=== PATIENT | male | born 1980 | race Caucasian/White ===

== ENCOUNTER 2016-04-10 19:44 | Emergency (ER) | payer OTHER ==
[2016-04-10 20:55] LABS: BASOPHILS % 0.5 (0.0-1.5); EOSINOPHILS % 3.7 % (0.0-6.8); LYMPHOCYTES # 3.3 # k/uL (0.6-4.0); MEAN CORPUSCULAR HEMOGLOBIN 30.2 pg (28.0-34.0); MONOCYTES # 0.6 # k/uL (0.0-0.9); MONOCYTES % 5.1 % (0.0-11.0); NEUTROPHILS # 6.9 # k/uL (1.4-7.7)
[2016-04-10 21:01] LABS: APPEARANCE,URINE Clear (CLEAR); COLOR,URINE Yellow (YELLOW); OCCULT BLOOD,URINE Negative (NEGATIVE)
[2016-04-10 21:11] LABS: eGFR (African) > 60; eGFR (Non-African) > 60
--- NOTE | 2016-04-10 21:28 | ED Physician Documentation ---
Psychological Disorders - HISTORIAN Historian: patient - HPI Stated Complaint: suicidal thoughts Chief Complaint: Psychological Disorder Onset: days ago (3) Intent: suicide Further Comments: yes (36 year old male patient presents with complaints of depression x 3 days, patient states he was started on Prozac 2 days ago by Roney. Patient reports long history of mental health problems, patient reports last inpatient stay 1 year ago at [facility] in . Patient states Sim increased his klonopin and added Prozac, states "I don't feel right". Reports plan to overdose on his cardiac medications. Old records reviewed, patient was seen in ER on 04/09/2016 for c/o bradycardia and anxiety, medicated with ativan IV, and discharged home. Instructed to follow up with PCP.) - Associated Symptoms Symptoms: depressed Suicidal: specific plan - ROS CONST: none NEURO/PSYCH: anxiety, depression EYES/ENT: none CVS/RESP: none GI/: denies: nausea, vomiting, problems urinating MS/SKIN/LYMPH: denies: joint pain, leg swelling - PAST HX Psychiatric problems: prior suicide attempt, psychiatric problems Lung, Cardiac, DM: asthma, cardiac disease (AMI, stent 08/2015), COPD, other (HLD ) Surgical History: angioplasty, appendectomy, cholecystectomy, coronary bypass surgery Allergies/Adverse Reactions: Allergies Allergy/AdvReac Type Severity Reaction Status Date / Time aripiprazole [From Abilify] Allergy facial Verified 04/10/16 19:59 twitching tramadol Allergy Verified 04/10/16 19:59 hydroxyzine HCl AdvReac Tremors Verified 04/10/16 19:59 [From Vistaril] hydroxyzine pamoate AdvReac Tremors Verified 04/10/16 19:59 [From Vistaril] Home Medications: Ambulatory Orders Medication Instructions Recorded Clopidogrel Bisulfate [Clopidogrel] 75 mg PO D 09/20/15 Aspirin [Aspir 81] 81 mg PO DAILY u2 12/09/15 Atorvastatin Calcium 80 mg PO HS u2 12/09/15 Lisinopril 5Mg [Prinivil] 5 mg PO 1/2 tab BID u2 12/09/15 Propranolol HCl [Inderal] 20 mg PO TID 01/18/16 clonazePAM [Klonopin] 1 mg PO BID 02/01/16 Omeprazole [Omeprazole] 20 mg PO DAILY 04/10/16 - Social HX Smoking History: cigarettes Drug Use: other (patient denies) - Family HX Family HX: mental illness - VITAL SIGNS Vital Signs: Vital Signs Temp Pulse Resp BP Pulse Ox 98.6 F 69 14 109/68 95 04/10/16 19:50 04/10/16 22:01 04/10/16 22:01 04/10/16 22:01 04/10/16 22:01 - REVIEWED ASSESSMENTS Nursing Assessment Reviewed: Yes Vitals Reviewed: Yes Progress - Progress Progress: No urine drug screens available at [facility] at this time. [facility] contacted , closed for the night. [facility] contacted - awaiting return call from scientific laboratory supervisor. [facility], [facility] contacted - will not accepted patient without UDS. [address] [facility] - will reviewed paperwork. Lab faxed. 2199 nanotechnician to deliver urine specimen to [facility] for UDS. 2219 Patient accepted by [facility] at [facility], agrees with voluntary commitment. Will transport via EMS. ED Results Lab/Radiology - Lab Results Lab Results: Lab Results 04/10/16 04/10/16 04/10/16 20:36 20:35 20:35 WBC RBC Hgb Hct MCV MCH MCHC RDW Plt Count Neut % (Auto) Lymph % (Auto) [place] % (Auto) Eos % (Auto) Baso % (Auto) Neut # Lymph # [place] # Eos # Baso # Reactive Lymphs % Reactive Lymphs # Sodium 135 mmol/L L mmol/L (136-145) Potassium 3.7 mmol/L mmol/L (3.5-5.0) Chloride 106 mmol/L mmol/L (98-110) Carbon Dioxide 27 mmol/L mmol/L (20-32) BUN 15 mg/dL mg/dL (10-26) Creatinine 0.8 mg/dL mg/dL (0.4-1.5) Estimated Creat Clear 144 Est GFR ( Amer) > 60 (60 - ) Est GFR (Non-Af Amer) > 60 (60 - ) Glucose 95 mg/dL mg/dL (70-99) Calcium 9.1 mg/dL mg/dL (8.5-10.5) Total Bilirubin 0.6 mg/dL mg/dL (0.2-1.2) AST 33 U/L U/L (0-41) ALT 38 U/L U/L (0-45) Alkaline Phosphatase 89 U/L U/L (46-116) Creatine Kinase 106 U/L U/L (0-225) Troponin I < 0.03 ng/mL ng/mL (0.00-0.06) Total Protein 7.3 g/dL g/dL (6.0-8.5) Albumin 4.7 g/dL g/dL (3.0-5.5) Urine Color Yellow (YELLOW) Urine Appearance Clear (CLEAR) Urine pH 6.0 (5.0 - 8.0) Ur Specific [place] 1.020 (1.010-1.030) Urine Protein Negative mg/dL mg/dL (NEGATIVE) Urine Ketones Negative mg/dL mg/dL (NEGATIVE) Urine Occult Blood Negative (NEGATIVE) Urine Nitrite Negative (NEGATIVE) Urine Bilirubin Negative (NEGATIVE) Urine Urobilinogen 1.0 Eu Eu (0.2-1.0) Ur Leukocyte Esterase Negative (NEGATIVE) Urine Glucose Negative mg/dL mg/dL (NEGATIVE) Ethyl Alcohol < 10.0 MG/DL MG/DL (<10.0) 04/10/16 20:35 WBC 11.30 K/ul K/ul (4.00-12.00) RBC 5.31 M/ul H M/ul (3.90-5.20) Hgb 16.1 g/dL g/dL (12.0-18.0) Hct 47.8 % % (37.0-53.0) MCV 90.0 fl fl (80.0-100.0) MCH 30.2 pg pg (28.0-34.0) MCHC 33.6 g/dL g/dL (30.0-36.0) RDW 13.7 % % (11.3-14.3) Plt Count 153 K/mm3 K/mm3 (130-400) Neut % (Auto) 60.7 % % (39.0-79.0) Lymph % (Auto) 28.7 % % (16.0-50.0) [place] % (Auto) 5.1 % % (0.0-11.0) Eos % (Auto) 3.7 % % (0.0-6.8) Baso % (Auto) 0.5 (0.0-1.5) Neut # 6.9 # k/uL # k/uL (1.4-7.7) Lymph # 3.3 # k/uL # k/uL (0.6-4.0) [place] # 0.6 # k/uL # k/uL (0.0-0.9) Eos # 0.4 # k/uL # k/uL (0.0-0.6) Baso # 0.1 # k/uL # k/uL (0.0-0.5) Reactive Lymphs % 1.2 % % (0.0-5.0) Reactive Lymphs # 0.1 # k/uL # k/uL (0.0-0.8) Sodium Potassium Chloride Carbon Dioxide BUN Creatinine Estimated Creat Clear Est GFR ( Amer) Est GFR (Non-Af Amer) Glucose Calcium Total Bilirubin AST ALT Alkaline Phosphatase Creatine Kinase Troponin I Total Protein Albumin Urine Color Urine Appearance Urine pH Ur Specific [place] Urine Protein Urine Ketones Urine Occult Blood Urine Nitrite Urine Bilirubin Urine Urobilinogen Ur Leukocyte Esterase Urine Glucose Ethyl Alcohol - Orders Orders: ED Orders Category Date Time Status Suicide Precautions NOW Care 04/10/16 19:15 Active CBC/PLATELET/DIFF Stat Lab 04/10/16 20:35 Completed CMP Stat Lab 04/10/16 20:35 Completed CREATINE KINASE Stat Lab 04/10/16 20:35 Completed ETHANOL MEDICAL USE ONLY Stat Lab 04/10/16 20:35 Completed TROPONIN I (cTnI) Stat Lab 04/10/16 20:35 Completed UA W/MICRO IF INDICATED Stat Lab 04/10/16 20:36 Completed Urine drug screen [DRUG SCREEN URINE MEDICAL ONLY] Stat Lab 04/10/16 Ordered EKG WITH COMPARISON Stat Ther 04/10/16 20:08 Ordered Psych Physical Exam - Physical Exam General Appearance: no acute distress, alert ENT: nml ENT inspection Eyes: PERRL, EOM's intact Mental Status: mood/affect nml Suicide Attempts: admit Orientation: nml x3 Sensory, Motor: nml motor response, nml sensory response, nml reflexes, nml gait Neck/Back: normal inspection, thyroid normal Respiratory: no resp distress, chest non-tender, breath sounds normal CVS: reg rate & rhythm, heart sounds normal, equal pulses, no murmur, no gallop , PMI nml, no JVD, no friction rub, 24 Abdomen: non-tender, no organomegaly, nml bowel sounds, no distention Skin: normal color, warm/dry, NR, INT, PAL, DR Extremities: non-tender, normal range of motion, no evidence of injury, no edema , J, 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
[2016-04-10 23:29] VITALS: BP 105/57
== END 2016-04-10 23:15 | disposition short-term general hospital (02) ==
LOC: ED 19:44
DX: R45.851 Suicidal ideations (principal); F41.9 Anxiety disorder, unspecified
CPT/HCPCS: 80053; 80320; 81002; 82550; 84484; 85025; 99282; 99283; G0480

== ENCOUNTER 2016-04-26 17:19 | Emergency (ER) | payer OTHER ==
--- NOTE | 2016-04-26 18:15 | ED Physician Documentation ---
General Adult - HISTORIAN Historian: patient - HPI Stated Complaint: Nausea/weakness Chief Complaint: General Adult Onset: days ago (3 days) Timing: still present Severity: moderate Context: no precipitating factor Further Comments: yes (3 day history of feeling fatigue and weak, having some body aches, SOB, coughing thick brown, mild blood noted. Dull aching and tightness in the chest area.) - ROS CONST: other (no one else at home ill, having orthostatic symptoms). denies: fever, chills CVS/RESP: chest pain, shortness of breath - PAST HX Past History: other (CAD) Surgeries/Procedures: other (cathdiac cath with stint placement) - SOCIAL HX Smoking History: greater than 1 pack/day (2 ppd) Alcohol Use: none Drug Use: none - FAMILY HX Family History: No - VITAL SIGNS Vital Signs: Vital Signs Temp Pulse Resp BP Pulse Ox 99.3 F 60 18 98/67 96 04/26/16 17:39 04/26/16 17:39 04/26/16 17:39 04/26/16 17:39 04/26/16 17:39 - REVIEWED ASSESSMENTS Nursing Assessment Reviewed: Yes Vitals Reviewed: Yes <Vijay Dave - Last Filed: 04/26/16 18:43> - VITAL SIGNS Vital Signs: Vital Signs Temp Pulse Resp BP Pulse Ox 99.3 F 60 18 98/67 96 04/26/16 17:39 04/26/16 17:39 04/26/16 17:39 04/26/16 17:39 04/26/16 17:39 <HAKEEM MURILLO - Last Filed: 04/26/16 19:49> - PAST HX Allergies/Adverse Reactions: Allergies Allergy/AdvReac Type Severity Reaction Status Date / Time aripiprazole [From Abilify] Allergy facial Verified 04/26/16 17:49 twitching tramadol Allergy Verified 04/26/16 17:49 hydroxyzine HCl AdvReac Tremors Verified 04/26/16 17:49 [From Vistaril] hydroxyzine pamoate AdvReac Tremors Verified 04/26/16 17:49 [From Vistaril] Home Medications: Ambulatory Orders Medication Instructions Recorded Clopidogrel Bisulfate [Clopidogrel] 75 mg PO D 09/20/15 Aspirin [Aspir 81] 81 mg PO DAILY u2 12/09/15 Atorvastatin Calcium 80 mg PO HS u2 12/09/15 Lisinopril 5Mg [Prinivil] 5 mg PO 1/2 tab BID u2 12/09/15 Propranolol HCl [Inderal] 20 mg PO TID 01/18/16 clonazePAM [Klonopin] 1 mg PO BID 02/01/16 Omeprazole [Omeprazole] 20 mg PO DAILY 04/10/16 Progress - Progress Progress: Chest -two views CLINICAL HISTORY: Cough and fatigue for 3 days. FINDINGS: Examination of the chest in PA and lateral views with comparison to examination 04/09/2016 demonstrates lungs to be clear. Cardiovascular and mediastinal silhouettes are stable. Bony thorax is intact. IMPRESSION: No significant change. No active disease. Electronically signed on Apr 26, 2016 6:33:05 PM SLAG PRODUCTION WORKER by: Derrick Douglas, Declines second bag of IV fluids. Says he feels ok to go home. <HAKEEM MURILLO - Last Filed: 04/26/16 19:49> ED Results Lab/Radiology - Lab Results Lab Results: Lab Results 04/26/16 04/26/16 04/26/16 18:40 18:40 18:40 WBC 10.60 K/ul K/ul (4.00-12.00) RBC 5.62 M/ul H M/ul (3.90-5.20) Hgb 16.8 g/dL g/dL (12.0-18.0) Hct 50.2 % % (37.0-53.0) MCV 89.3 fl fl (80.0-100.0) MCH 30.0 pg pg (28.0-34.0) MCHC 33.6 g/dL g/dL (30.0-36.0) RDW 13.9 % % (11.3-14.3) Plt Count 192 K/mm3 K/mm3 (130-400) Neut % (Auto) 51.0 % % (39.0-79.0) Lymph % (Auto) 36.3 % % (16.0-50.0) [place] % (Auto) 6.4 % % (0.0-11.0) Eos % (Auto) 4.4 % % (0.0-6.8) Baso % (Auto) 0.6 (0.0-1.5) Neut # 5.4 # k/uL # k/uL (1.4-7.7) Lymph # 3.8 # k/uL # k/uL (0.6-4.0) [place] # 0.7 # k/uL # k/uL (0.0-0.9) Eos # 0.5 # k/uL # k/uL (0.0-0.6) Baso # 0.1 # k/uL # k/uL (0.0-0.5) Reactive Lymphs % 1.2 % % (0.0-5.0) Reactive Lymphs # 0.1 # k/uL # k/uL (0.0-0.8) Sodium 140 mmol/L mmol/L (136-145) Potassium 3.4 mmol/L L mmol/L (3.5-5.0) Chloride 105 mmol/L mmol/L (98-110) Carbon Dioxide 29 mmol/L mmol/L (20-32) BUN 8 mg/dL L mg/dL (10-26) Creatinine 0.7 mg/dL mg/dL (0.4-1.5) Estimated Creat Clear 165 Est GFR ( Amer) > 60 (60 - ) Est GFR (Non-Af Amer) > 60 (60 - ) Glucose 98 mg/dL mg/dL (70-99) Calcium 9.7 mg/dL mg/dL (8.5-10.5) Total Bilirubin 0.5 mg/dL mg/dL (0.2-1.2) AST 27 U/L U/L (0-41) ALT 38 U/L U/L (0-45) Alkaline Phosphatase 108 U/L U/L (46-116) Total Protein 7.5 g/dL g/dL (6.0-8.5) Albumin 4.8 g/dL g/dL (3.0-5.5) Influenza Type A Ag Negative (NEGATIVE) Influenza Type B Ag Negative (NEGATIVE) - Orders Orders: ED Orders Category Date Time Status Place Saline Lock/IV Now Care 04/26/16 18:19 Active CHEST P.A.&LAT 2 VIEWS [RAD] Routine Exams 04/26/16 Ordered CBC/PLATELET/DIFF Routine Lab 04/26/16 18:40 Completed CMP Routine Lab 04/26/16 18:40 Completed INFLUENZA A&B Routine Lab 04/26/16 18:40 Completed 0.9 % Sodium Chloride [Normal Saline] 1,000 ml Med 04/26/16 18:30 Ordered IV .Q1H <HAKEEM MURILLO - Last Filed: 04/26/16 19:49> General Adult Physical Exam - PHYSICAL EXAM GENERAL APPEARANCE: mild distress EENT: no signs of dehydration NECK: normal inspection, thyroid normal, supple. No: lymphadenopathy, stiff neck RESPIRATORY: no resp distress, chest non-tender, rales (left base) CVS: reg rate & rhythm, heart sounds normal, equal pulses ABDOMEN: soft, no organomegaly, normal bowel sounds, no abdominal bruit, no distension, non-tender BACK: normal inspection, no CVA tenderness SKIN: warm/dry, normal color NEURO: oriented X3, mood/affect nml, cognition normal <Vijay Dave - Last Filed: 04/26/16 18:43> Discharge <Vijay Dave - Last Filed: 04/26/16 18:43> Decision to Admit: NO Decision Time: 19:47 <HAKEEM MURILLO - Last Filed: 04/26/16 19:49> Clincal Impression: Upper respiratory infection Qualifiers: URI type: unspecified URI Qualified Code(s): J06.9 - Acute upper respiratory infection, unspecified Referrals: Vijay Dave MD [Primary Care Provider] - 2 Days Additional Instructions: Drink plenty of liquids, water. Follow up with your provider as needed. Home Medications: Ambulatory Orders Clopidogrel Bisulfate [Clopidogrel] 75 mg PO D 09/20/15 Aspirin [Aspir 81] 81 mg PO DAILY u2 12/09/15 Atorvastatin Calcium 80 mg PO HS u2 12/09/15 Lisinopril 5Mg [Prinivil] 5 mg PO 1/2 tab BID u2 12/09/15 Propranolol HCl [Inderal] 20 mg PO TID 01/18/16 clonazePAM [Klonopin] 1 mg PO BID 02/01/16 Omeprazole [Omeprazole] 20 mg PO DAILY 04/10/16 Condition: Fair Disposition: 01 HOME, SELF-CARE
[2016-04-26] MEDS ORDERED: 0.9 % SODIUM CHLORIDE 1,000 ML IV ONE (18:24)
[2016-04-26] MEDS: 0.9 % SODIUM CHLORIDE 1,000 ML IV SCH (18:42)
[2016-04-26 18:47] LABS: BASOPHILS % 0.6 (0.0-1.5); EOSINOPHILS % 4.4 % (0.0-6.8); LYMPHOCYTES # 3.8 # k/uL (0.6-4.0); MONOCYTES # 0.7 # k/uL (0.0-0.9); MONOCYTES % 6.4 % (0.0-11.0); NEUTROPHILS # 5.4 # k/uL (1.4-7.7)
[2016-04-26 19:05] LABS: eGFR (African) > 60; eGFR (Non-African) > 60
[2016-04-26] MEDS: 0.9 % SODIUM CHLORIDE 1,000 ML IV ONE (19:48)
[2016-04-26 20:00] VITALS: BP 110/62
--- NOTE | 2016-04-27 06:32 | Diagnostic Imaging Report ---
Report Submission Date: Apr 26, 2016 6:33:05 PM PIT WORKER POWER SHOVEL Patient ~ Study Name: ALISA CRABTREE ~ Date: Apr 26, 2016 6:24:15 PM PIT WORKER POWER SHOVEL ~ Modality Type: CR Gender: M ~ Description: CHEST : 76 ~ Institution: [facility] Physician: TALAT EDMONSDON ~ ~ ~ ~ Chest -two views CLINICAL HISTORY: ~ Cough and fatigue for 3 days. FINDINGS: ~ Examination of the chest in PA and lateral views with comparison to examination 04/09/2016 demonstrates lungs to be clear. ~Cardiovascular and mediastinal silhouettes are stable. ~Bony thorax is intact. IMPRESSION: ~ No significant change. ~ No active disease. ~ Electronically signed on Apr 26, 2016 6:33:05 PM PIT WORKER POWER SHOVEL by: Derrick VIEYRA
== END 2016-04-26 19:55 | disposition home or self-care (01) ==
LOC: ED 17:19
DX: J06.9 Acute upper respiratory infection, unspecified (principal)
CPT/HCPCS: 71020; 80053; 85025; 87400; J7030; 99282; 99283; S1016

== ENCOUNTER 2016-05-08 17:49 | Emergency (ER) | payer OTHER ==
[2016-05-08 18:08] VITALS: BP 114/71
[2016-05-08] MEDS ORDERED: predniSONE 20 MG TABLET PO ONE (18:28)
[2016-05-08] MEDS ORDERED: HYDROcodone /APAP 5/325 1 EACH TABLET PO ONE (18:29)
[2016-05-08] MEDS ORDERED: predniSONE 10 MG TABLET PO ONE (18:31)
--- NOTE | 2016-05-08 18:33 | ED Physician Documentation ---
General Adult - HISTORIAN Historian: patient - HPI Stated Complaint: cough, dental pain Chief Complaint: General Adult Onset: days ago (3) Timing: still present Severity: moderate Further Comments: yes (Pt is a 36 yo male with dental pain and with a cough x 3 days. Pt has had dental extractions recently and has other extractions planned. Pt is on amoxicillan following his recent extractions.) - ROS CONST: no problems EYES/ENT: other (dental pain) CVS/RESP: cough GI/: none MS/SKIN/LYMPH: none - PAST HX Past History: other (Depression, GERD, HLD, HTN, [place] with stents) Surgeries/Procedures: cardiac stent Allergies/Adverse Reactions: Allergies Allergy/AdvReac Type Severity Reaction Status Date / Time aripiprazole [From Abilify] Allergy facial Verified 05/08/16 18:00 twitching tramadol Allergy Verified 05/08/16 18:00 hydroxyzine HCl AdvReac Tremors Verified 05/08/16 18:00 [From Vistaril] hydroxyzine pamoate AdvReac Tremors Verified 05/08/16 18:00 [From Vistaril] Home Medications: Ambulatory Orders Medication Instructions Recorded Clopidogrel Bisulfate [Clopidogrel] 75 mg PO D 09/20/15 Aspirin [Aspir 81] 81 mg PO DAILY u2 12/09/15 Atorvastatin Calcium 80 mg PO HS u2 12/09/15 Lisinopril 5Mg [Prinivil] 5 mg PO 1/2 tab BID u2 12/09/15 Propranolol HCl [Inderal] 20 mg PO TID 01/18/16 clonazePAM [Klonopin] 1 mg PO BID 02/01/16 Omeprazole [Omeprazole] 20 mg PO DAILY 04/10/16 - SOCIAL HX Smoking History: cigarettes - FAMILY HX Family History: No - VITAL SIGNS Vital Signs: Vital Signs Temp Pulse Resp BP Pulse Ox 97.5 F L 71 16 114/71 98 05/08/16 18:01 05/08/16 18:01 05/08/16 18:01 05/08/16 18:01 05/08/16 18:01 - REVIEWED ASSESSMENTS Nursing Assessment Reviewed: Yes Vitals Reviewed: Yes Progress - Progress Progress: Rx Prednisone 50 mg po qd x 5 days, 1st dose in ER Rx [place] (5/325) 1-2 po q 4-6h prn #10, plus 2-->home. ED Results Lab/Radiology - Orders Orders: ED Orders Category Date Time Status CHEST P.A.&LAT 2 VIEWS [RAD] Stat Exams 05/08/16 Ordered HYDROcodone /APAP 5/325 [[place] 5/325] Med 05/08/16 18:29 Once 2 each PO NOW ONE predniSONE [Deltasone] Med 05/08/16 18:28 Once 50 mg PO NOW ONE General Adult Physical Exam - PHYSICAL EXAM GENERAL APPEARANCE: mild distress EENT: pharynx normal, other (poor dentition; L upper dental pain) RESPIRATORY: no resp distress, chest non-tender CVS: reg rate & rhythm, heart sounds normal BACK: normal inspection SKIN: warm/dry, normal color EXTREMITIES: non-tender, normal range of motion NEURO: oriented X3 Discharge Clincal Impression: Pain, dental, Cough Referrals: Vijay Dave MD [Primary Care Provider] - Home Medications: Ambulatory Orders Clopidogrel Bisulfate [Clopidogrel] 75 mg PO D 09/20/15 Aspirin [Aspir 81] 81 mg PO DAILY u2 12/09/15 Atorvastatin Calcium 80 mg PO HS u2 12/09/15 Lisinopril 5Mg [Prinivil] 5 mg PO 1/2 tab BID u2 12/09/15 Propranolol HCl [Inderal] 20 mg PO TID 01/18/16 clonazePAM [Klonopin] 1 mg PO BID 02/01/16 Omeprazole [Omeprazole] 20 mg PO DAILY 04/10/16 Condition: Good Disposition: HOME, SELF-CARE Decision to Admit: NO Decision Time: 18:40
--- NOTE | 2016-05-08 18:40 | Diagnostic Imaging Report ---
~ [facility] [address] [facility].[address] [address] ~ ~ ~ ~ Report Submission Date: May 08, 2016 6:30:15 PM ROUGH RICE GRADER Patient ~ Study Name: ALISA CRABTREE ~ Date: May 08, 2016 6:17:02 PM ROUGH RICE GRADER ~ Modality Type: CR Gender: M ~ Description: CHEST : 76 ~ Institution: [facility] Physician: EZEQUIEL RUTLEDGE ~ ~ ~ ~ Chest 2 views History: Productive cough Findings: The lungs are clear. No pleural effusions are observed. Heart size and pulmonary vascularity are normal. Osseous structures are normal. Impression: Normal chest. ~ Electronically signed on May 08, 2016 6:30:15 PM ROUGH RICE GRADER by: Gerson VIEYRA
== END 2016-05-08 18:46 | disposition home or self-care (01) ==
LOC: ED 17:49
DX: K02.9 Dental caries, unspecified (principal); R05 Cough; F17.210 Nicotine dependence, cigarettes, uncomplicated
CPT/HCPCS: 71020; A9270; J7512; 99282; 99283

== ENCOUNTER 2016-05-10 10:23 | Outpatient (CLI) | payer OTHER | END 2016-05-10 10:24 | LOC: CARD 10:23 | PROVIDERS: ATTEND Internal Medicine Cardiovascular Disease | DX: I25.10 Atherosclerotic heart disease of native coronary artery without angina pectoris (principal) | CPT/HCPCS: 99214 ==

== ENCOUNTER 2016-05-16 08:52 | Emergency (ER) | payer OTHER ==
--- NOTE | 2016-05-16 10:12 | ED Physician Documentation ---
Sore Throat/Dental Pain - HISTORIAN Historian: patient - HPI Stated Complaint: dental pain Chief Complaint: Dental Pain Additional Information: post dental extraction pain Onset: days ago (4) Associated Symptoms: mild, moderate Further Comments: yes (pt understands he must see dentists before more pain meds. he also agrees to limit narcotic, supplement w/ ibu or tylenol. he sees his dentist fri next.) - ROS CONST: no problems CVS/RESP: none GI/: denies: problems urinating NEURO/PSYCH: none - PAST HX Past History: other (IHD TEMORS HI CHOLESTEROL) Other History: cardiac disease, other (HE HAS HAD BALOON AND STENT) Immunizations: UTD Allergies/Adverse Reactions: Allergies Allergy/AdvReac Type Severity Reaction Status Date / Time aripiprazole [From Abilify] Allergy facial Verified 05/16/16 09:23 twitching tramadol Allergy Verified 05/16/16 09:23 hydroxyzine HCl AdvReac Tremors Verified 05/16/16 09:23 [From Vistaril] hydroxyzine pamoate AdvReac Tremors Verified 05/16/16 09:23 [From Vistaril] Home Medications: Ambulatory Orders Medication Instructions Recorded Clopidogrel Bisulfate [Clopidogrel] 75 mg PO D 09/20/15 Aspirin [Aspir 81] 81 mg PO DAILY u2 12/09/15 Atorvastatin Calcium 80 mg PO HS u2 12/09/15 Lisinopril 5Mg [Prinivil] 5 mg PO 1/2 tab BID u2 12/09/15 Propranolol HCl [Inderal] 20 mg PO TID 01/18/16 clonazePAM [Klonopin] 1 mg PO BID 02/01/16 Omeprazole [Omeprazole] 20 mg PO DAILY 04/10/16 HYDROcodone /APAP 5/325 [[place] 1 each PO Q6 PRN 05/16/16 5/325] - SOCIAL HX Smoking History: greater than 1 pack/day Alcohol Use: none Drug Use: none - FAMILY HX Family History: No - VITAL SIGNS Vital Signs: Vital Signs Temp Pulse Resp BP Pulse Ox 98.2 F 64 18 112/67 93 05/16/16 09:28 05/16/16 09:28 05/16/16 09:28 05/16/16 09:28 05/16/16 09:28 - REVIEWED ASSESSMENTS Nursing Assessment Reviewed: Yes Vitals Reviewed: Yes Dental Pain Physical Exam - EXAM General Appearance: mild distress Head/Neck: head nml inspection Eyes: eyes nml inspection Mouth/Throat: lips nml. No: gums nml (s/p recent dental extrlaction) Ear/Nose: nml inspection Respiratory: no resp. distress, breath sounds nml CVS: reg. rate & rhythm Abdomen: soft, non-tender Extremities: non-tender, nml ROM Skin: warm/dry, normal color, other (smell heavily of cigarette smoke) Neuro/Psych: anxiety Discharge Clincal Impression: post dental extraction pain Additional Instructions: no more narcotics from this ed-pt agrees. also agrees to see dentists very soon Home Medications: Ambulatory Orders Clopidogrel Bisulfate [Clopidogrel] 75 mg PO D 09/20/15 Aspirin [Aspir 81] 81 mg PO DAILY u2 12/09/15 Atorvastatin Calcium 80 mg PO HS u2 12/09/15 Lisinopril 5Mg [Prinivil] 5 mg PO 1/2 tab BID u2 12/09/15 Propranolol HCl [Inderal] 20 mg PO TID 01/18/16 clonazePAM [Klonopin] 1 mg PO BID 02/01/16 Omeprazole [Omeprazole] 20 mg PO DAILY 04/10/16 HYDROcodone /APAP 5/325 [[place] 5/325] 1 each PO Q6 PRN 05/16/16 Condition: Good Disposition: 01 HOME, SELF-CARE Decision to Admit: NO Decision Time: 10:17
[2016-05-16 10:36] VITALS: BP 109/68
== END 2016-05-16 10:35 | disposition home or self-care (01) ==
LOC: ED 08:52
DX: K02.9 Dental caries, unspecified (principal)
CPT/HCPCS: 99282

== ENCOUNTER 2016-05-17 11:19 | Outpatient (CLI) | payer OTHER ==
[2016-05-16 10:36] VITALS: BP 109/68
== END 2016-05-17 11:20 ==
LOC: CARD 11:19
PROVIDERS: ATTEND Internal Medicine Cardiovascular Disease
DX: I25.10 Atherosclerotic heart disease of native coronary artery without angina pectoris (principal)
CPT/HCPCS: 99214

== ENCOUNTER 2016-06-09 07:43 | Outpatient (CLI) | payer OTHER ==
--- NOTE | 2016-06-09 13:08 | Diagnostic Imaging Report ---
RADHA RUSSELL [facility] [address] [facility] [address] [place] [address]. [id number] Report Submission Date: Jun 09, 2016 10:33:34 AM LOCKSTITCH HEMMER Patient Study Name: ALISA CRABTREE Date: Jun 09, 2016 8:07:56 AM LOCKSTITCH HEMMER Modality Type: US Gender: M Description: US ABD LIMITED : 76 Institution: [facility] Physician: RADHA RUSSELL Ultrasound abdomen limited History: Vomiting for 1 week following coronary stent placement Findings: The pancreas, liver, and right kidney exhibit normal size, echogenicity and morphology. Antegrade main portal venous flow is present. The gallbladder is normal without stones, wall thickening, or distention. Common bile duct diameter is normal at 3 mm. Impression: Normal. Electronically signed on Jun 09, 2016 10:33:34 AM LOCKSTITCH HEMMER by: Gerson VIEYRA
== END 2016-06-09 07:44 ==
LOC: RAD 07:43
PROVIDERS: ATTEND Physician Assistant
DX: R11.11 Vomiting without nausea (principal)
CPT/HCPCS: 76705

== ENCOUNTER 2016-06-15 10:07 | Emergency (ER) | payer OTHER ==
[2016-06-15] MEDS ORDERED: PROMETHAZINE HCL 25 MG/ML VIAL IM ONE (10:28)
[2016-06-15 10:42] LABS: BASOPHILS % 0.4 (0.0-1.5); EOSINOPHILS % 3.2 % (0.0-6.8); LYMPHOCYTES # 2.6 # k/uL (0.6-4.0); MEAN CORPUSCULAR HEMOGLOBIN 30.3 pg (28.0-34.0); MONOCYTES # 0.4 # k/uL (0.0-0.9); NEUTROPHILS # 10.4 # k/uL (1.4-7.7)
[2016-06-15 11:03] LABS: eGFR (African) > 60; eGFR (Non-African) > 60
--- NOTE | 2016-06-15 11:17 | ED Physician Documentation ---
Abdominal Pain - HISTORIAN Historian: patient - HPI Stated Complaint: vomiting Chief Complaint: Abdominal Pain Onset: other (weeks ago) Duration: worse Timing: still present Context: denies: out of country travel, bad food, recent trauma Severity: severe Quality: dull Associated Symptoms: nausea, vomiting Exacerbated by: nothing Relieved by: nothing Further Comments: yes (36 year old male patient presents with complaints of vomiting 4 times today. States he is scheduled with GI on 06/27. Denies fever, c/o discomfort "all over".) - ROS CONST: recent illness GI/: none CVS/RESP: none EYES/ENT: none MS/SKIN/LYMPH: none NEURO/PSYCH: none - SOCIAL HX Smoking History: non-smoker Alcohol Use: none Drug Use: none - FAMILY HX Family History: denies: none - PAST HX Past History: GERD Ischemic Bowel Risk Factors: none Other History: hyperlipidemia, hypertension, other (Scitzophrenia, GERD, HLD, HTN) Surgeries/Procedures: other (angioplasty 1st Diagonal) Home Medications: Ambulatory Orders Medication Instructions Recorded Clopidogrel Bisulfate [Clopidogrel] 75 mg PO D 09/20/15 Aspirin [Aspir 81] 81 mg PO DAILY u2 12/09/15 Atorvastatin Calcium 80 mg PO HS u2 12/09/15 Lisinopril 5Mg [Prinivil] 5 mg PO 1/2 tab BID u2 12/09/15 Propranolol HCl [Inderal] 20 mg PO TID 01/18/16 clonazePAM [Klonopin] 1 mg PO BID 02/01/16 Omeprazole [Omeprazole] 20 mg PO DAILY 04/10/16 Escitalopram Oxalate [Lexapro] 10 mg PO QD 06/15/16 Omeprazole [Prilosec] 20 mg PO 06/15/16 Sucralfate [Carafate] 1 gm PO ACHS #120 tablet 06/15/16 Zolpidem Tartrate [Ambien] 10 mg PO HS 06/15/16 Allergies/Adverse Reactions: Allergies Allergy/AdvReac Type Severity Reaction Status Date / Time aripiprazole [From Abilify] Allergy facial Verified 06/15/16 10:52 twitching tramadol Allergy Verified 06/15/16 10:52 hydroxyzine HCl AdvReac Tremors Verified 06/15/16 10:52 [From Vistaril] hydroxyzine pamoate AdvReac Tremors Verified 06/15/16 10:52 [From Vistaril] - VITAL SIGNS Vital Signs: Vital Signs Temp Pulse Resp BP Pulse Ox 98.0 F 60 16 126/84 97 06/15/16 10:12 06/15/16 10:12 06/15/16 10:12 06/15/16 10:12 06/15/16 10:12 - REVIEWED ASSESSMENTS Nursing Assessment Reviewed: Yes Vitals Reviewed: Yes Progress - Progress Progress: Reviewed old records - NO CT of abdomen noted in system. US report on 06/09/2016 - negative. Will progress with CT abd. 1140 Patient has not vomited while in ER. ED Results Lab/Radiology - Lab Results Lab Results: Lab Results 06/15/16 06/15/16 10:30 10:30 WBC 14.00 K/ul H K/ul (4.00-12.00) RBC 5.25 M/ul H M/ul (3.90-5.20) Hgb 15.9 g/dL g/dL (12.0-18.0) Hct 48.1 % % (37.0-53.0) MCV 91.7 fl fl (80.0-100.0) MCH 30.3 pg pg (28.0-34.0) MCHC 33.0 g/dL g/dL (30.0-36.0) RDW 14.5 % H % (11.3-14.3) Plt Count 261 K/mm3 K/mm3 (130-400) Neut % (Auto) 74.3 % % (39.0-79.0) Lymph % (Auto) 18.2 % % (16.0-50.0) [place] % (Auto) 3.0 % % (0.0-11.0) Eos % (Auto) 3.2 % % (0.0-6.8) Baso % (Auto) 0.4 (0.0-1.5) Neut # 10.4 # k/uL H # k/uL (1.4-7.7) Lymph # 2.6 # k/uL # k/uL (0.6-4.0) [place] # 0.4 # k/uL # k/uL (0.0-0.9) Eos # 0.4 # k/uL # k/uL (0.0-0.6) Baso # 0.0 # k/uL # k/uL (0.0-0.5) Reactive Lymphs % 0.9 % % (0.0-5.0) Reactive Lymphs # 0.1 # k/uL # k/uL (0.0-0.8) Sodium 137 mmol/L mmol/L (136-145) Potassium 3.7 mmol/L mmol/L (3.5-5.0) Chloride 104 mmol/L mmol/L (98-110) Carbon Dioxide 29 mmol/L mmol/L (20-32) BUN 9 mg/dL L mg/dL (10-26) Creatinine 0.8 mg/dL mg/dL (0.4-1.5) Estimated Creat Clear 136 Est GFR ( Amer) > 60 (60 - ) Est GFR (Non-Af Amer) > 60 (60 - ) Glucose 128 mg/dL H mg/dL (70-99) Calcium 9.6 mg/dL mg/dL (8.5-10.5) Total Bilirubin 0.6 mg/dL mg/dL (0.2-1.2) AST 30 U/L U/L (0-41) ALT 36 U/L U/L (0-45) Alkaline Phosphatase 99 U/L U/L (46-116) Total Protein 7.8 g/dL g/dL (6.0-8.5) Albumin 4.6 g/dL g/dL (3.0-5.5) - Radiology Radiology Impressions: CT of the abdomen and pelvis without contrast CLINICAL HISTORY: Right side abdominal pain. Vomiting for 2 months. TECHNIQUE: CT of the abdomen and pelvis is performed without oral or intravenous administration of contrast. Sagittal and coronal reconstructions are performed by the technologist. FINDINGS: There is minimal dependent atelectasis in the lung bases. The liver and spleen demonstrate normal attenuation without focal defect. Gallbladder is normally distended. There is no pancreatic or adrenal abnormality. Kidneys are of normal size, shape and position. Vascular calcification is present in the abdominal aorta without evidence of aneurysm. There is no retroperitoneal mass or significant adenopathy. The appendix is visualized and is within normal limits. The structures related to the gastrointestinal tract are unremarkable. Small umbilical hernia is present containing only fat. Bladder is unremarkable. There is no free fluid in the pelvis or abdomen. IMPRESSION: Negative appendix. Vascular calcification. Bibasilar atelectasis. - Orders Orders: ED Orders Category Date Time Status CT ABD & PELVIS W/O CON Stat Exams 06/15/16 Taken CBC/PLATELET/DIFF Stat Lab 06/15/16 10:30 Completed CMP Stat Lab 06/15/16 10:30 Completed Promethazine HCl [Phenergan] Med 06/15/16 10:28 Discontinued 25 mg IM NOW ONE Abdominal Pain Physical Exam - Physical Exam General Appearance: mild distress EENT: eye inspection normal, no signs of dehydration, ANA RESPIRATORY: no resp distress, chest non-tender, breath sounds normal CVS: reg rate & rhythm, heart sounds normal, equal pulses, no murmur, no gallop , PMI nml, no JVD, no friction rub, 24 ABDOMEN: soft, no organomegaly, normal bowel sounds, no abdominal bruit, no distension, tenderness (generalized). 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 NEURO: oriented X3, CN's nml as tested, motor nml, sensation nml Vital Signs: Vital Signs Temp Pulse Resp BP Pulse Ox 98.0 F 60 16 126/84 97 06/15/16 10:12 06/15/16 10:12 06/15/16 10:12 06/15/16 10:12 06/15/16 10:12 Discharge Clincal Impression: Nausea, Epigastric abdominal pain Abdominal pain Qualifiers: Abdominal location: generalized Qualified Code(s): R10.84 - Generalized abdominal pain Prescriptions: Sucralfate [Carafate] 1 gm PO ACHS #120 tablet Referrals: Vijay Dave MD [Primary Care Provider] - 2 Days Additional Instructions: Keep your appointment with GI Diet: Clear liquids Sprite/7-up Juices apple, white grape Gatorade/Powerade Jello Popsicles When tolerating clear liquids, advance to bland diet - such as crackers , rice, bananas or toast Return to the emergency department or call your doctor, if you are having severe abdominal pain, fever >101.0, or if there is blood in the vomit or diarrhea, or you cannot keep down liquids or solid food. Home Medications: Ambulatory Orders Clopidogrel Bisulfate [Clopidogrel] 75 mg PO D 09/20/15 Aspirin [Aspir 81] 81 mg PO DAILY u2 12/09/15 Atorvastatin Calcium 80 mg PO HS u2 12/09/15 Lisinopril 5Mg [Prinivil] 5 mg PO 1/ tab BID u2 12/09/15 Propranolol HCl [Inderal] 20 mg PO TID 01/18/16 clonazePAM [Klonopin] 1 mg PO BID 02/01/16 Omeprazole [Omeprazole] 20 mg PO DAILY 04/10/16 Escitalopram Oxalate [Lexapro] 10 mg PO QD 06/15/16 Omeprazole [Prilosec] 20 mg PO 06/15/16 Sucralfate [Carafate] 1 gm PO ACHS #120 tablet 06/15/16 Zolpidem Tartrate [Ambien] 10 mg PO HS 06/15/16 Condition: Stable Disposition: 01 HOME, SELF-CARE Decision to Admit: NO Decision Time: 13:08
[2016-06-15 15:07] VITALS: BP 103/61
--- NOTE | 2016-06-15 16:04 | Diagnostic Imaging Report ---
[facility] [address] [facility] [address] [place], [place]. [address] Report Submission Date: Jun 15, 2016 12:49:36 PM VISUAL EDUCATOR Patient Study Name: ALISA CRABTREE Date: Jun 15, 2016 11:24:35 AM VISUAL EDUCATOR Modality Type: CT\SR Gender: M Description: CT ABD & PELVIS W/O CO : 76 Institution: [facility] Physician: LAMBERTO VOGT (CLIENT SOLUTIONS SPECIALIST) - ER CT of the abdomen and pelvis without contrast CLINICAL HISTORY: Right side abdominal pain. Vomiting for 2 months. TECHNIQUE: CT of the abdomen and pelvis is performed without oral or intravenous administration of contrast. Sagittal and coronal reconstructions are performed by the technologist. FINDINGS: There is minimal dependent atelectasis in the lung bases. The liver and spleen demonstrate normal attenuation without focal defect. Gallbladder is normally distended. There is no pancreatic or adrenal abnormality. Kidneys are of normal size, shape and position. Vascular calcification is present in the abdominal aorta without evidence of aneurysm. There is no retroperitoneal mass or significant adenopathy. The appendix is visualized and is within normal limits. The structures related to the gastrointestinal tract are unremarkable. Small umbilical hernia is present containing only fat. Bladder is unremarkable. There is no free fluid in the pelvis or abdomen. IMPRESSION: Negative appendix. Vascular calcification. Bibasilar atelectasis. Electronically signed on Jun 15, 2016 12:49:36 PM VISUAL EDUCATOR by: Derrick VIEYRA
== END 2016-06-15 13:25 | disposition home or self-care (01) ==
LOC: ED 10:07
DX: R11.0 Nausea (principal); R10.84 Generalized abdominal pain
CPT/HCPCS: 36415; 74176; 80053; 85025; J2550; 96374; 99283

== ENCOUNTER 2016-06-20 12:19 | Outpatient (CLI) | payer OTHER ==
[2016-06-20 12:35] LABS: BASOPHILS % 0.5 (0.0-1.5); EOSINOPHILS % 3.6 % (0.0-6.8); MEAN CORPUSCULAR HEMOGLOBIN 30.7 pg (28.0-34.0); MONOCYTES # 0.5 # k/uL (0.0-0.9); MONOCYTES % 4.4 % (0.0-11.0); NEUTROPHILS # 6.8 # k/uL (1.4-7.7)
--- NOTE | 2016-06-20 15:47 | Diagnostic Imaging Report ---
[facility] [address] [facility].[address] [address] Report Submission Date: Jun 20, 2016 3:22:54 PM CDT Patient Study Name: ALISA CRABTREE Date: Jun 20, 2016 12:28:34 PM CDT Modality Type: CR Gender: M Description: CHEST : 76 Institution: [facility] Physician: MEENAKSHI MARIANELA - OP Chest PA and lateral views Clinical history: Dyspnea and cough Normal heart shadow and mediastinum. Clear lungs without acute infiltrates or pleural effusion. Normal bony thorax. Impression: No active pulmonary pathology Electronically signed on Jun 20, 2016 3:22:54 PM CDT by: Vijay VIEYRA
== END 2016-06-20 12:20 ==
LOC: LAB 12:19
PROVIDERS: ATTEND Family Medicine
DX: R11.14 Bilious vomiting (principal); R10.13 Epigastric pain; I25.10 Atherosclerotic heart disease of native coronary artery without angina pectoris; R05 Cough
CPT/HCPCS: 36415; 71020; 82150; 84484; 85025

== ENCOUNTER 2016-06-24 18:28 | Emergency (ER) | payer OTHER ==
[2016-06-24] MEDS ORDERED: 0.9 % SODIUM CHLORIDE 1,000 ML IV ONE ×2 (19:04→19:12)
[2016-06-24] MEDS ORDERED: PANTOPRAZOLE SODIUM 40 MG in 0.9 % SODIUM CHLORIDE 50 ML IV ONE (19:12)
[2016-06-24] MEDS ORDERED: ONDANSETRON HCL/PF 4 MG/ 2ML VIAL IVP ONE (19:15)
[2016-06-24] MEDS ORDERED: MORPHINE SULFATE 4 MG/ML DISP.SYRIN IVP ONE (19:28)
[2016-06-24 19:29] LABS: BASOPHILS % 0.6 (0.0-1.5); EOSINOPHILS % 4.2 % (0.0-6.8); LYMPHOCYTES # 3.4 # k/uL (0.6-4.0); MEAN CORPUSCULAR HEMOGLOBIN 32.3 pg (28.0-34.0); MONOCYTES # 0.7 # k/uL (0.0-0.9); MONOCYTES % 6.8 % (0.0-11.0)
[2016-06-24 20:05] LABS: eGFR (African) > 60; eGFR (Non-African) > 60
[2016-06-24] MEDS ORDERED: ONDANSETRON HCL 4 MG TAB.RAPDIS PO ONE (20:07)
--- NOTE | 2016-06-24 20:12 | ED Physician Documentation ---
General Adult - HISTORIAN Historian: patient, other (old records) - HPI Stated Complaint: vomiting,stomach pain, intermittent chest pain Chief Complaint: General Adult Additional Information: Intermittent CP for 4-5 days. Vomiting coffee ground emesis occasionally. Has know GI bleed. Supposed to take omeprazole and aucralfate. Says sucralfate nauseates him so he doesn't take it. On plavix for previous FL. To have EGD on Monday. - ROS CONST: no problems - PAST HX Past History: AMI, other (depression, suicide attempts. Migraines. ) Allergies/Adverse Reactions: Allergies Allergy/AdvReac Type Severity Reaction Status Date / Time aripiprazole [From Abilify] Allergy facial Verified 06/24/16 18:48 twitching tramadol Allergy Verified 06/24/16 18:48 hydroxyzine HCl AdvReac Tremors Verified 06/24/16 18:48 [From Vistaril] hydroxyzine pamoate AdvReac Tremors Verified 06/24/16 18:48 [From Vistaril] Home Medications: Ambulatory Orders Medication Instructions Recorded Clopidogrel Bisulfate [Clopidogrel] 75 mg PO D 09/20/15 Aspirin [Aspir 81] 81 mg PO DAILY u2 12/09/15 Atorvastatin Calcium 80 mg PO HS u2 12/09/15 Lisinopril 5Mg [Prinivil] 5 mg PO 1/2 tab BID u2 12/09/15 Propranolol HCl [Inderal] 20 mg PO TID 01/18/16 clonazePAM [Klonopin] 1 mg PO BID 02/01/16 Omeprazole [Omeprazole] 20 mg PO DAILY 04/10/16 Escitalopram Oxalate [Lexapro] 10 mg PO QD 06/15/16 Sucralfate [Carafate] 1 gm PO ACHS #120 tablet 06/15/16 Zolpidem Tartrate [Ambien] 10 mg PO HS 06/15/16 Ondansetron HCl Rapdis [Zofran Odt] 4 mg PO Q8 PRN #30 tab 06/24/16 - SOCIAL HX Smoking History: cigarettes (2 PPD) - FAMILY HX Family History: No - VITAL SIGNS Vital Signs: Vital Signs Temp Pulse Resp BP Pulse Ox 98.5 F 60 16 110/72 97 06/24/16 18:35 06/24/16 19:12 06/24/16 18:35 06/24/16 18:35 06/24/16 19:12 - REVIEWED ASSESSMENTS Nursing Assessment Reviewed: Yes Vitals Reviewed: Yes Progress - Progress Progress: Portable view chest Clinical history: Vomiting blood Findings: The heart size is normal. No pleural effusion, pneumothorax alveolar consolidation. Impression: Negative portable chest exam Electronically signed on Jun 24, 2016 8:07:43 PM CDT by: Chun Beltre EKG: sinus rhythm, LAFB, no acute changes 2030, says he feels much better. See discharge instructions. ED Results Lab/Radiology - Lab Results Lab Results: Lab Results 06/24/16 06/24/16 06/24/16 19:25 19:25 19:25 WBC 9.70 K/ul K/ul (4.00-12.00) RBC 5.10 M/ul M/ul (3.90-5.20) Hgb 16.5 g/dL g/dL (12.0-18.0) Hct 47.1 % % (37.0-53.0) MCV 92.4 fl fl (80.0-100.0) MCH 32.3 pg pg (28.0-34.0) MCHC 34.9 g/dL g/dL (30.0-36.0) RDW 14.5 % H % (11.3-14.3) Plt Count 182 K/mm3 K/mm3 (130-400) Neut % (Auto) 51.7 % % (39.0-79.0) Lymph % (Auto) 35.2 % % (16.0-50.0) [place] % (Auto) 6.8 % % (0.0-11.0) Eos % (Auto) 4.2 % % (0.0-6.8) Baso % (Auto) 0.6 (0.0-1.5) Neut # 5.0 # k/uL # k/uL (1.4-7.7) Lymph # 3.4 # k/uL # k/uL (0.6-4.0) [place] # 0.7 # k/uL # k/uL (0.0-0.9) Eos # 0.4 # k/uL # k/uL (0.0-0.6) Baso # 0.1 # k/uL # k/uL (0.0-0.5) Reactive Lymphs % 1.5 % % (0.0-5.0) Reactive Lymphs # 0.2 # k/uL # k/uL (0.0-0.8) Sodium 141 mmol/L mmol/L (136-145) Potassium 3.5 mmol/L mmol/L (3.5-5.0) Chloride 110 mmol/L mmol/L (98-110) Carbon Dioxide 30 mmol/L mmol/L (20-32) BUN 8 mg/dL L mg/dL (10-26) Creatinine 0.5 mg/dL mg/dL (0.4-1.5) Estimated Creat Clear 221 Est GFR ( Amer) > 60 (60 - ) Est GFR (Non-Af Amer) > 60 (60 - ) Glucose 89 mg/dL mg/dL (70-99) Calcium 9.0 mg/dL mg/dL (8.5-10.5) Total Bilirubin 0.4 mg/dL mg/dL (0.2-1.2) AST 21 U/L U/L (0-41) ALT 25 U/L U/L (0-45) Alkaline Phosphatase 97 U/L U/L (46-116) Troponin I 0.00 ng/mL L ng/mL (0.03-0.06) Total Protein 6.6 g/dL g/dL (6.0-8.5) Albumin 4.1 g/dL g/dL (3.0-5.5) - Orders Orders: ED Orders Category Date Time Status Continuous EKG monitoring Q1H Care 06/24/16 19:12 Active Continuous Pulse Oximetry Q1H Care 06/24/16 19:[address] Saline Lock/IV Now Care 06/24/16 19:12 Active CHEST 1 VIEW [RAD] Stat Exams 06/24/16 Taken CBC/PLATELET/DIFF Routine Lab 06/24/16 19:25 Completed CMP Routine Lab 06/24/16 19:25 Completed TROPONIN I (cTnI) Stat Lab 06/24/16 19:25 Completed URINALYSIS Routine Lab 06/24/16 Ordered 0.9 % Sodium Chloride [Normal Saline] 1,000 ml Med 06/24/16 19:04 Discontinued IV .STK-MED 0.9 % Sodium Chloride [Normal Saline] 1,000 ml Med 06/24/16 19:12 Active IV Q1H Morphine Sulfate [DepoDUR] Med 06/24/16 19:28 Discontinued 4 mg IVP NOW ONE Ondansetron HCl Rapdis [Zofran Odt] Med 06/24/16 20:07 Once 4 mg PO NOW ONE Ondansetron HCl/Pf [Zofran 4 mg/2 ml] Med 06/24/16 19:15 Discontinued 4 mg IVP NOW ONE Pantoprazole Sodium [Protonix] 40 mg Med 06/24/16 19:12 Discontinued 0.9 % Sodium Chloride [Sodium Chloride] 50 ml IV DAILY Oxygen Daily Oxygen 06/24/16 19:30 Ordered EKG WITH COMPARISON Stat Ther 06/24/16 Ordered General Adult Physical Exam - PHYSICAL EXAM GENERAL APPEARANCE: mild distress EENT: eye inspection normal, ENT inspection normal NECK: normal inspection, supple RESPIRATORY: no resp distress, chest non-tender, breath sounds normal CVS: reg rate & rhythm, heart sounds normal, no murmur ABDOMEN: normal bowel sounds RECTAL: deferred BACK: normal inspection SKIN: warm/dry, normal color EXTREMITIES: normal range of motion (gait), no evidence of injury NEURO: CN's nml as tested, motor nml, sensation nml Discharge Clincal Impression: GI bleed Qualifiers: GI bleed type/associated pathology: unspecified gastrointestinal hemorrhage type Qualified Code(s): K92.2 - Gastrointestinal hemorrhage, unspecified Clincal Impression: (Ruled Out): GI bleeds, multiple during admission Prescriptions: Ondansetron HCl Rapdis [Zofran Odt] 4 mg PO Q8 PRN #30 tab PRN Reason: Nausea / Vomiting Additional Instructions: Take Zofran to control your nausea so that you can take sucralfate. Stop Plavix until you have an EGD on June 27. Home Medications: Ambulatory Orders Clopidogrel Bisulfate [Clopidogrel] 75 mg PO D 09/20/15 Aspirin [Aspir 81] 81 mg PO DAILY u2 12/09/15 Atorvastatin Calcium 80 mg PO HS u2 12/09/15 Lisinopril 5Mg [Prinivil] 5 mg PO 1/2 tab BID u2 12/09/15 Propranolol HCl [Inderal] 20 mg PO TID 01/18/16 clonazePAM [Klonopin] 1 mg PO BID 02/01/16 Omeprazole [Omeprazole] 20 mg PO DAILY 04/10/16 Escitalopram Oxalate [Lexapro] 10 mg PO QD 06/15/16 Sucralfate [Carafate] 1 gm PO ACHS #120 tablet 06/15/16 Zolpidem Tartrate [Ambien] 10 mg PO HS 06/15/16 Ondansetron HCl Rapdis [Zofran Odt] 4 mg PO Q8 PRN #30 tab 06/24/16 Decision to Admit: NO Decision Time: 20:30
[2016-06-24 20:55] VITALS: BP 109/59
--- NOTE | 2016-06-25 01:17 | Diagnostic Imaging Report ---
HAKEEM MURILLO~ [facility] [address] [facility] [address] [place], [place]. [address] ~ ~ ~ ~ Report Submission Date: Jun 24, 2016 8:07:43 PM CDT Patient ~ Study Name: ALISA CRABTREE ~ Date: Jun 24, 2016 7:51:27 PM CDT ~ Modality Type: CR Gender: M ~ Description: CHEST : 76 ~ Institution: [facility] Physician: HAKEEM MURILLO ~ ~ ~ ~ Portable view chest Clinical history: Vomiting blood Findings: The heart size is normal. No pleural effusion, pneumothorax alveolar consolidation. Impression: Negative portable chest exam ~ Electronically signed on Jun 24, 2016 8:07:43 PM CDT by: Chun VIEYRA
[2016-06-25 05:55] LABS: APPEARANCE,URINE CLEAR (CLEAR); COLOR,URINE YELLOW (YELLOW); OCCULT BLOOD,URINE NEGATIVE (NEGATIVE); PH URINE 6.5 (5.0 - 8.0); UROBILINOGEN URINE 0.2 Eu (0.2-1.0)
== END 2016-06-24 20:40 ==
LOC: ED 18:28
DX: K92.2 Gastrointestinal hemorrhage, unspecified (principal)
CPT/HCPCS: 71010; 80053; 81002; 84484; 85025; 93005; J2270; J2405; J7030; 96361; 96374; 96375; 99283; 99284; S1016

== ENCOUNTER 2016-06-27 12:15 | Day surgery (SDC) | payer OTHER ==
[~2016-06-27 12:15] MED LIST: LACTATED RINGERS 1,000 ML IV.SOLN IV ONE; PROPOFOL 200 MG/20 ML VIAL IV ONE; SALINE FLUSH 10 ML DISP.SYRIN IVF ONE
--- NOTE | 2016-06-28 14:33 | GI Report ---
REFERRING PHYSICIAN: Dr. Vijay Dave [employer] FRAMES: Anuj Chapa MD PROCEDURE MEDICATION: Propofol as per anesthesia. INDICATIONS: This is a 36-year-old man who says he has been vomiting up coffee-ground material. He has been vomiting daily for 6 months. He has had 2 myocardial infarctions and a stent. He still smokes 2 packs of cigarettes a day. He is on a number of medications including omeprazole. He is on Plavix and Klonopin 1 mg t.i.d. He is on antihypertensives. He is on lipid-lowering medications. He has been on meloxicam in the past also. Patient has underlying coronary artery disease, panic disorder, and paranoid schizophrenia. PROCEDURE PERFORMED: Endoscopy and biopsies. PROCEDURE: An Olympus video endoscope was passed through the esophagus under direct visualization. Patient does have distal esophagitis of the GE junction. We did biopsies. It does not look like Ocampo's. The stomach is entered. Patient has gastroparesis. There is some residual food in the stomach. There is no motility noted. Diffuse gastritis with ulcerations, erosions, erythema, and friability. Biopsies were taken for pathology. Pylorus is open. Duodenal bulb, first and second part of the duodenum were unremarkable. Patient tolerated the procedure well. FINDINGS: 1. Gastroparesis. 2. Significant gastritis. 3. Esophagitis. DISCUSSION/RECOMMENDATIONS: 1. Pending the biopsies, patient needs to be on gastroparesis diet of 6 small meals a day. It is unlikely things will improve without discontinuing his 2 pack of cigarettes a day. Patient no longer smokes marijuana. He denies taking any narcotic pain medicine at present. 2. I would elevate the head of the bed at least 3 inches. 3. He can restart his Plavix tomorrow. 4. Follow up with Dr. Dave. 5. Follow up with his pivot end polisher. cc: Dr. Vijay Dave [facility] HOSPITALGracie
== END 2016-06-27 12:16 ==
LOC: OPSURG 12:15
PROVIDERS: ATTEND Internal Medicine Gastroenterology
DX: R10.9 Unspecified abdominal pain (principal); K21.9 Gastro-esophageal reflux disease without esophagitis; K20.9 Esophagitis, unspecified; K29.70 Gastritis, unspecified, without bleeding
CPT/HCPCS: 43235; J2704; J7120; S1016

== ENCOUNTER 2016-06-28 10:34 | Outpatient (CLI) | payer OTHER | END 2016-06-28 10:35 | LOC: CARD 10:34 | PROVIDERS: ATTEND Internal Medicine Cardiovascular Disease | DX: I25.10 Atherosclerotic heart disease of native coronary artery without angina pectoris (principal); R07.89 Other chest pain; I10 Essential (primary) hypertension; F17.210 Nicotine dependence, cigarettes, uncomplicated | CPT/HCPCS: 99214 ==

== ENCOUNTER 2016-07-02 10:09 | Emergency (ER) | payer OTHER ==
--- NOTE | 2016-07-02 10:33 | ED Physician Documentation ---
General Adult - HISTORIAN Historian: patient - HPI Chief Complaint: GI Bleed Onset: hours Timing: still present Severity: mild Modifying Factors: none Context: constipation Further Comments: yes (Сергей states that he has had some migraine headaches for several days. Has been taking Tylenol, Ibuprofen, and Advil. Nothing seems to have helped. Has an appointment with neurologist next month for evaluation. No precipitating factors noted. Gets headaches daily. Has recently had an endoscopy and was found to have multiple ulcers. Was told to stop plavix. Is taking some Omeprazole and Carafate. This seems to be helping. Has been having some constipation problems. This AM had two BM with bright red blood, mixed in the stool and noted with wiping. Did have some cramping and had to strain to have BM. Has seen Dr Preston recently and had no changes to his meds. Had a stress test done which was read as normal but was suboptimal, he did not reach target heart rate.) Last known Well Date: 07/02/16 Last Known Well Time: 08:20 Last known Well Code/Unknown Code: Known - ROS CONST: no problems. denies: fever, chills - PAST HX Past History: other (CAD) Other History: other (Paranoid Schizophrenia, PUD, Panic disorder, Anxiety) Surgeries/Procedures: cardiac stent Allergies/Adverse Reactions: Allergies Allergy/AdvReac Type Severity Reaction Status Date / Time aripiprazole [From Abilify] Allergy facial Verified 07/02/16 10:31 twitching tramadol Allergy Verified 07/02/16 10:31 hydroxyzine HCl AdvReac Tremors Verified 07/02/16 10:31 [From Vistaril] hydroxyzine pamoate AdvReac Tremors Verified 07/02/16 10:31 [From Vistaril] Home Medications: Ambulatory Orders Medication Instructions Recorded Clopidogrel Bisulfate [Clopidogrel] 75 mg PO D 09/20/15 Aspirin [Aspir 81] 81 mg PO DAILY u2 12/09/15 Atorvastatin Calcium 80 mg PO HS u2 12/09/15 Lisinopril 5Mg [Prinivil] 5 mg PO 1/2 tab BID u2 12/09/15 Propranolol HCl [Inderal] 20 mg PO TID 01/18/16 clonazePAM [Klonopin] 1 mg PO BID 02/01/16 Omeprazole [Omeprazole] 20 mg PO DAILY 04/10/16 Escitalopram Oxalate [Lexapro] 10 mg PO QD 06/15/16 Sucralfate [Carafate] 1 gm PO ACHS #120 tablet 06/15/16 Zolpidem Tartrate [Ambien] 10 mg PO HS 06/15/16 Ondansetron HCl Rapdis [Zofran Odt] 4 mg PO Q8 PRN #30 tab 06/24/16 - SOCIAL HX Smoking History: less than 1 pack/day Alcohol Use: none Drug Use: none - FAMILY HX Family History: Yes - VITAL SIGNS Vital Signs: Vital Signs Temp Pulse Resp BP Pulse Ox 109/59 06/24/16 20:52 - REVIEWED ASSESSMENTS Nursing Assessment Reviewed: Yes Vitals Reviewed: Yes Progress - Results/Orders Results/Orders: Patients chest pain seems somewhat atyipcal. I do not it is related to his CAD. Rectal bleeding may be related to internal hemorrhoid or fissure. Will monitor. - Progress Progress: 11:57 Chest pain is better, still having a headache 12:38 Headache is improving, chest pain is almost gone. General Adult Physical Exam - PHYSICAL EXAM GENERAL APPEARANCE: mild distress EENT: eye inspection normal, ENT inspection normal, pharynx normal, no signs of dehydration NECK: normal inspection, thyroid normal, supple. No: lymphadenopathy RESPIRATORY: no resp distress, chest non-tender, breath sounds normal. No: wheezes, rales, rhonchi CVS: reg rate & rhythm, heart sounds normal, equal pulses, no murmur, no gallop ABDOMEN: soft, no organomegaly, normal bowel sounds, no abdominal bruit, no distension, tenderness (mild diffuse, worse in the epigastric area). No: rebound, guarding RECTAL: normal exam, normal rectal tone, heme negative stool. No: hemorrhoids ( external), mass, tenderness BACK: normal inspection, no CVA tenderness SKIN: warm/dry NEURO: oriented X3, CN's nml as tested, motor nml, sensation nml, mood/affect nml, cognition normal Discharge Clincal Impression: Chest pain Qualifiers: Chest pain type: unspecified Qualified Code(s): R07.9 - Chest pain, unspecified Constipation Qualifiers: Constipation type: slow transit constipation Qualified Code(s): K59.01 - Slow transit constipation Referrals: Vijay Dave MD [Primary Care Provider] - 2 Days Additional Instructions: Continue with present medications. Avoid acid or spicy foods. Home and rest. If you have any further problems to return to the ED. Try to drink a lot of water and take a stool softener to help with the constipation. Home Medications: Ambulatory Orders Clopidogrel Bisulfate [Clopidogrel] 75 mg PO D 09/20/15 Aspirin [Aspir 81] 81 mg PO DAILY u2 12/09/15 Atorvastatin Calcium 80 mg PO HS u2 12/09/15 Lisinopril 5Mg [Prinivil] 5 mg PO 1/2 tab BID u2 12/09/15 Propranolol HCl [Inderal] 20 mg PO TID 01/18/16 clonazePAM [Klonopin] 1 mg PO BID 02/01/16 Omeprazole [Omeprazole] 20 mg PO DAILY 04/10/16 Escitalopram Oxalate [Lexapro] 10 mg PO QD 06/15/16 Sucralfate [Carafate] 1 gm PO ACHS #120 tablet 06/15/16 Zolpidem Tartrate [Ambien] 10 mg PO HS 06/15/16 Ondansetron HCl Rapdis [Zofran Odt] 4 mg PO Q8 PRN #30 tab 06/24/16 Condition: Stable Decision to Admit: NO Date of Decison to Admit: 07/02/16 Decision Time: 12:42
[2016-07-02 11:18] LABS: BASOPHILS % 0.5 (0.0-1.5); EOSINOPHILS % 3.8 % (0.0-6.8); MEAN CORPUSCULAR HEMOGLOBIN 31.5 pg (28.0-34.0); MONOCYTES # 0.5 # k/uL (0.0-0.9); MONOCYTES % 4.1 % (0.0-11.0); NEUTROPHILS # 8.5 # k/uL (1.4-7.7)
[2016-07-02 11:33] LABS: eGFR (African) > 60; eGFR (Non-African) > 60
[2016-07-02] MEDS ORDERED: ACETAMINOPHEN WITH CODEINE 300MG/30MG TABLET PO ONE (11:57)
--- NOTE | 2016-07-02 13:04 | Diagnostic Imaging Report ---
DELVIS GILLILAND~ [facility] [address] [facility] [address] [place] [address]. [id number] ~ ~ ~ ~ Report Submission Date: Jul 02, 2016 11:32:15 AM CDT Patient ~ Study Name: ALISA CRABTREE ~ Date: Jul 02, 2016 11:20:04 AM CDT ~ Modality Type: CR Gender: M ~ Description: CHEST : 76 ~ Institution: [facility] Physician: DELIVS GILLILAND ~ ~ ~ ~ Chest, 2 view History: Chest pain Findings: The heart size is normal. The lungs are clear. There is no pleural effusion or pneumothorax identified. The osseous structures are normal. Impression: 1. No acute pulmonary disease. ~ Electronically signed on Jul 02, 2016 11:32:15 AM CDT by: Seven VIEYRA
[2016-07-02 14:03] VITALS: BP 102/64
== END 2016-07-02 12:58 | disposition home or self-care (01) ==
LOC: ED 10:09
DX: R07.9 Chest pain, unspecified (principal); K59.01 Slow transit constipation; F17.210 Nicotine dependence, cigarettes, uncomplicated
CPT/HCPCS: 71020; 80053; 84484; 85025; S1016

== ENCOUNTER 2016-07-06 21:14 | Emergency (ER) | payer OTHER ==
[2016-07-06] MEDS ORDERED: DOCUSATE SODIUM 100 MG CAPSULE PO ONE (21:57)
--- NOTE | 2016-07-06 22:07 | ED Physician Documentation ---
General Adult - HPI Stated Complaint: One episode of rectal bleed with BM just prior to admit Chief Complaint: General Adult Additional Information: Had a bowel movement and says the toilet water was red with blood. First bowel movement i nthree days. Saw Dr. Dave a few days ago with the same concern. No longer taking any clotting inhibitors. - ROS CONST: no problems - PAST HX Past History: other (AMI, SI, GI Bleed?) Allergies/Adverse Reactions: Allergies Allergy/AdvReac Type Severity Reaction Status Date / Time aripiprazole [From Abilify] Allergy facial Verified 07/02/16 10:31 twitching tramadol Allergy Verified 07/02/16 10:31 hydroxyzine HCl AdvReac Tremors Verified 07/02/16 10:31 [From Vistaril] hydroxyzine pamoate AdvReac Tremors Verified 07/02/16 10:31 [From Vistaril] Home Medications: Ambulatory Orders Medication Instructions Recorded Propranolol HCl [Inderal] 20 mg PO TID 01/18/16 Docusate Sodium [Colace] 100 mg PO DAILY #30 capsule 07/06/16 clonazePAM [Klonopin] 1 mg PO TID 07/06/16 - SOCIAL HX Smoking History: non-smoker - FAMILY HX Family History: No - VITAL SIGNS Vital Signs: Vital Signs Temp Pulse Resp BP Pulse Ox 98.1 F 72 16 112/66 97 07/06/16 21:14 07/06/16 21:14 07/06/16 21:14 07/06/16 21:14 07/06/16 21:14 - REVIEWED ASSESSMENTS Nursing Assessment Reviewed: Yes Vitals Reviewed: Yes ED Results Lab/Radiology - Orders Orders: ED Orders Category Date Time Status Docusate Sodium [Colace] Med 07/06/16 21:57 Discontinued 100 mg PO NOW ONE General Adult Physical Exam - PHYSICAL EXAM GENERAL APPEARANCE: no distress EENT: eye inspection normal NECK: normal inspection RESPIRATORY: no resp distress ABDOMEN: soft, no distension RECTAL: other (heme positive pink mucus. No external hemorrhoids. ) BACK: other (movements w/o pain ) SKIN: warm/dry, normal color EXTREMITIES: normal range of motion (gait) NEURO: CN's nml as tested, motor nml, sensation nml Discharge Clincal Impression: Rectal bleeding Constipation Qualifiers: Constipation type: unspecified constipation type Qualified Code(s): K59.00 - Constipation, unspecified Additional Instructions: Take the Colace as prescribed to keep your stools softer. Home Medications: Ambulatory Orders Propranolol HCl [Inderal] 20 mg PO TID 01/18/16 Docusate Sodium [Colace] 100 mg PO DAILY #30 capsule 07/06/16 clonazePAM [Klonopin] 1 mg PO TID 07/06/16 Condition: Good Disposition: 01 HOME, SELF-CARE Decision to Admit: NO Decision Time: 22:07
[2016-07-06 22:35] VITALS: BP 114/72
== END 2016-07-06 22:20 | disposition home or self-care (01) ==
LOC: ED 21:14
DX: K59.00 Constipation, unspecified (principal)
CPT/HCPCS: 82272; 99283

== ENCOUNTER 2016-07-13 15:28 | Outpatient (CLI) | payer OTHER ==
[2016-07-13 15:45] LABS: APPEARANCE,URINE Clear (CLEAR); COLOR,URINE Yellow (YELLOW); OCCULT BLOOD,URINE Negative (NEGATIVE)
[2016-07-13 15:52] LABS: BASOPHILS % 0.4 (0.0-1.5); EOSINOPHILS % 3.6 % (0.0-6.8); MEAN CORPUSCULAR HEMOGLOBIN 31.1 pg (28.0-34.0); MEAN CORPUSCULAR VOLUME 94.1 fl (80.0-100.0); MONOCYTES % 3.1 % (0.0-11.0); NEUTROPHILS # 8.9 # k/uL (1.4-7.7)
[2016-07-13 16:18] LABS: eGFR (African) > 60; eGFR (Non-African) > 60
== END 2016-07-13 15:30 ==
LOC: LAB 15:28
PROVIDERS: ATTEND Nurse Practitioner Family
DX: R51 Headache (principal); M54.2 Cervicalgia; E78.2 Mixed hyperlipidemia
CPT/HCPCS: 36415; 80053; 80061; 81002; 81240; 81241; 81291; 83090; 84439; 84443; 85025; 85300; 85302; 85305; 85306

== ENCOUNTER 2016-07-20 18:34 | Emergency (ER) | payer OTHER ==
--- NOTE | 2016-07-20 18:55 | ED Physician Documentation ---
General Adult - HISTORIAN Historian: patient - HPI Stated Complaint: Weakness, chest pain Chief Complaint: General Adult Onset: hours Timing: still present Severity: moderate Further Comments: yes (Pt is a 36 yo male with hx DE x 2 in May 2015 and with gastitis, esophagitis, and gastroparesis by recent endoscopy 06/27/16. Pt also has anxiety and tremor for which he takes Klonopin and Propranlol. Pt was seen earlier this week at [facility] for chest pain and dizziness, and presents again here today with the same complaint. Pt is a heavy smoker. Pt is noted to be bradycardic on presentation with HR=55. Pt has had no significant sob, no n/v, or diaphoresis. Pt has had recent complaints of blood in stool and is to have colonoscopy on 08/08/16, he says.) - ROS CONST: weakness EYES/ENT: none CVS/RESP: chest pain (continuous for many days), shortness of breath (mild, occasional) GI/: other (gastritis) MS/SKIN/LYMPH: none NEURO/PSYCH: headache (frequent) - PAST HX Past History: other (CAD; paranoid schizophrenia; anxiety/panic d/o; esophagitis /gastritis/gastroparesis; smoking; chronic tremor for many years.) Surgeries/Procedures: cardiac stent Allergies/Adverse Reactions: Allergies Allergy/AdvReac Type Severity Reaction Status Date / Time aripiprazole [From Abilify] Allergy facial Verified 07/02/16 10:31 twitching tramadol Allergy Verified 07/02/16 10:31 hydroxyzine HCl AdvReac Tremors Verified 07/02/16 10:31 [From Vistaril] hydroxyzine pamoate AdvReac Tremors Verified 07/02/16 10:31 [From Vistaril] Home Medications: Ambulatory Orders Medication Instructions Recorded Docusate Sodium [Colace] 100 mg PO DAILY #30 capsule 07/06/16 clonazePAM [Klonopin] 1 mg PO TID 07/06/16 - SOCIAL HX Smoking History: greater than 1 pack/day - FAMILY HX Family History: Yes (sister: lung cancer) - VITAL SIGNS Vital Signs: Vital Signs Temp Pulse Resp BP Pulse Ox 98.1 F 62 18 126/74 98 07/20/16 18:35 07/20/16 18:35 07/20/16 18:35 07/20/16 18:35 07/20/16 18:35 - REVIEWED ASSESSMENTS Nursing Assessment Reviewed: Yes Vitals Reviewed: Yes Progress - Progress Progress: GI cocktail Ativan 1 mg IV some improvement Pt with c/o episodic dizziness on propranolol tid for tremor. Pt will try taking propranolol bid to see if sx improve and will f/u with pcp. Pt will restart Plavix as recommended after recent endoscopy, and also recommended by manager pediatric Dr. Preston, according to the pt. Pt will f/u with pcp. - EKG/XRAY/CT EKG: NSR (HR=63; LAFB; LAD.) XRAY: chest (neg) ED Results Lab/Radiology - Orders Orders: ED Orders Category Date Time Status Continuous EKG monitoring Q30M Care 07/20/16 18:48 Active Continuous Pulse Oximetry Q30M Care 07/20/16 18:[address] Saline Lock/IV NOW Care 07/20/16 18:48 Active CHEST 1 VIEW [RAD] Stat Exams 07/20/16 18:48 Ordered CBC/PLATELET/DIFF Routine Lab 07/20/16 18:45 Received CKMB Stat Lab 07/20/16 18:45 Received CMP Routine Lab 07/20/16 18:45 Received CREATINE KINASE Routine Lab 07/20/16 18:45 Received TROPONIN I (cTnI) Stat Lab 07/20/16 18:45 Received Oxygen Daily Oxygen 07/20/16 19:00 Ordered EKG WITH COMPARISON Stat Ther 07/20/16 18:48 Ordered General Adult Physical Exam - PHYSICAL EXAM GENERAL APPEARANCE: mild distress EENT: eye inspection normal, ENT inspection normal, pharynx normal NECK: normal inspection, supple RESPIRATORY: no resp distress, chest non-tender, breath sounds normal CVS: heart sounds normal, bradycardia ABDOMEN: soft, no organomegaly, normal bowel sounds BACK: normal inspection, no CVA tenderness SKIN: warm/dry, normal color EXTREMITIES: non-tender, normal range of motion, no evidence of injury, no edema NEURO: oriented X3, motor nml, sensation nml Discharge Clincal Impression: Dizziness, chest pain/anxiety/gastitis, bradycardia Referrals: Cyn Roberson, PRN [Primary Care Provider] - 2 Days Home Medications: Ambulatory Orders Docusate Sodium [Colace] 100 mg PO DAILY #30 capsule 07/06/16 clonazePAM [Klonopin] 1 mg PO TID 07/06/16 Condition: Good Disposition: 01 HOME, SELF-CARE Decision to Admit: NO Decision Time: 21:09
[2016-07-20 18:57] LABS: BASOPHILS % 0.4 (0.0-1.5); EOSINOPHILS % 5.9 % (0.0-6.8); MEAN CORPUSCULAR VOLUME 93.3 fl (80.0-100.0); NEUTROPHILS # 6.4 # k/uL (1.4-7.7)
[2016-07-20] MEDS ORDERED: MAG HYDROX/AL HYDROX/SIMETH 30 ML, Lidocaine 2%Visc 15ml 20 MG, PHENobarb/HYOSCY/ATROPI... PO ONE ×3 (18:59)
[2016-07-20] MEDS ORDERED: LORazepam 2 MG/ML VIAL IVP ONE (19:00)
[2016-07-20] MEDS ORDERED: MAGNESIUM HYDROXIDE/AL HYDROX 30 ML UDC PO ONE (19:07)
[2016-07-20] MEDS ORDERED: Lidocaine 2%Visc 15ml 20 MG/ML UDC ONE (19:08)
[2016-07-20 19:13] LABS: eGFR (African) > 60; eGFR (Non-African) > 60
--- NOTE | 2016-07-20 19:24 | Diagnostic Imaging Report ---
MATY NIEVES [facility] [address] [facility] [address] [place] [address]. [phone] Report Submission Date: Jul 20, 2016 7:10:50 PM CDT Patient Study Name: ALISA CRABTREE Date: Jul 20, 2016 6:59:09 PM CDT Modality Type: CR Gender: M Description: CHEST : 76 Institution: [facility] Physician: MATY NIEVES Chest -one view CLINICAL HISTORY: Chest pain for 2 days. FINDINGS: Examination of the chest in single portable AP view 07/20/2016 1859 hr with comparison to examination of 07/02/2016 demonstrates the lungs to be clear. Cardiovascular and mediastinal silhouettes are stable. Monitor leads superimpose the chest. The bony thorax is intact. IMPRESSION: No significant change. No active disease. Electronically signed on Jul 20, 2016 7:10:50 PM CDT by: Derrick VIEYRA
[2016-07-20 20:18] VITALS: BP 101/68
== END 2016-07-20 20:15 | disposition home or self-care (01) ==
LOC: ED 18:34
DX: R07.9 Chest pain, unspecified (principal); R42 Dizziness and giddiness; F41.9 Anxiety disorder, unspecified; R00.1 Bradycardia, unspecified
CPT/HCPCS: 71010; 80053; 82550; 82553; 84484; 85025; A9270; J2060; S1016

== ENCOUNTER 2016-07-31 20:03 | Emergency (ER) | payer OTHER ==
[2016-07-31] MEDS ORDERED: LORazepam 2 MG/ML VIAL ONE (20:28)
[2016-07-31] MEDS ORDERED: LORazepam 2 MG/ML VIAL IM ONE (20:28)
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
[2016-07-31 21:21] VITALS: BP 110/81
== END 2016-07-31 20:49 | disposition home or self-care (01) ==
LOC: ED 20:03
DX: F41.9 Anxiety disorder, unspecified (principal); F17.210 Nicotine dependence, cigarettes, uncomplicated
CPT/HCPCS: J2060 ×2; 96372; 99283

== ENCOUNTER 2016-08-09 10:50 | Outpatient (CLI) | payer OTHER | END 2016-08-09 10:51 | LOC: CARD 10:50 | PROVIDERS: ATTEND Internal Medicine Cardiovascular Disease | DX: I25.10 Atherosclerotic heart disease of native coronary artery without angina pectoris (principal); I95.9 Hypotension, unspecified; R55 Syncope and collapse | CPT/HCPCS: 99214 ==

== ENCOUNTER 2016-08-23 08:58 | Emergency (ER) | payer OTHER ==
--- NOTE | 2016-08-23 09:01 | ED Physician Documentation ---
General Adult - HISTORIAN Historian: patient - HPI Chief Complaint: General Adult Timing: still present Further Comments: yes (Pateint has a history of anxiety and panic attacks. Went to see Nava Roberson and was started on hydroxyzine and Buspar. Started on August 12. Patient stopped cloazepam. Now feels like he is having a panic attack. Feels that he is choking on his tongue. Patient has been seen by [facility]. But skipped his last appointment. Patient also states that he also is having some stomach problems associated with plavix. Has had problems in the past with plavix causing some stomach issues. Has been taking recent double his omeprazole to 40mg BID.) - ROS CONST: no problems - PAST HX Past History: other (CAD) Allergies/Adverse Reactions: Allergies Allergy/AdvReac Type Severity Reaction Status Date / Time aripiprazole [From Abilify] Allergy facial Verified 08/23/16 09:16 twitching tramadol Allergy Verified 08/23/16 09:16 hydroxyzine HCl AdvReac Tremors Verified 08/23/16 09:16 [From Vistaril] hydroxyzine pamoate AdvReac Tremors Verified 08/23/16 09:16 [From Vistaril] Home Medications: Ambulatory Orders Medication Instructions Recorded clonazePAM [Klonopin] 1 mg PO TID 07/06/16 Aspirin [Adult Low Dose Aspirin EC] 81 mg PO QDAY 08/23/16 Baclofen 20 mg PO TID 08/23/16 Clonazepam 1 mg PO BID PRN #10 tablet 08/23/16 Clopidogrel Bisulfate [Plavix] 75 mg PO QD 08/23/16 Omeprazole [Prilosec] 40 mg PO BID 08/23/16 Propranolol HCl [Inderal] 20 mg PO TID 08/23/16 - SOCIAL HX Smoking History: greater than 1 pack/day (3ppd) Alcohol Use: none Drug Use: none - FAMILY HX Family History: Yes (father with CAD, HTN, mother with HTN) - VITAL SIGNS Vital Signs: Vital Signs Temp Pulse Resp BP Pulse Ox 110/81 07/31/16 21:15 Progress - Progress Progress: 10:18 Anxiety is better. Feels that he can manage at home at this time. General Adult Physical Exam - PHYSICAL EXAM GENERAL APPEARANCE: mild distress EENT: ENT inspection normal NECK: normal inspection, thyroid normal, supple RESPIRATORY: no resp distress, chest non-tender, breath sounds normal CVS: reg rate & rhythm, heart sounds normal, equal pulses, no murmur ABDOMEN: soft, no organomegaly, normal bowel sounds BACK: normal inspection SKIN: warm/dry NEURO: oriented X3, CN's nml as tested, motor nml, sensation nml. No: mood/ affect nml (anxious) Discharge Clincal Impression: Anxiety Prescriptions: Clonazepam 1 mg PO BID PRN #10 tablet PRN Reason: Anxiety Referrals: Cyn Roberson, NEMO [Primary Care Provider] - 2 Days Additional Instructions: To follow-up with Nava Roberson or see [facility] about further treatment of your anxiety issues. Stay off Plavix for the next tow days. Continue taking the omeprazole twice a day. If you have any further problems to return to clinic. Home Medications: Ambulatory Orders clonazePAM [Klonopin] 1 mg PO TID 07/06/16 Aspirin [Adult Low Dose Aspirin EC] 81 mg PO QDAY 08/23/16 Baclofen 20 mg PO TID 08/23/16 Clonazepam 1 mg PO BID PRN #10 tablet 08/23/16 Clopidogrel Bisulfate [Plavix] 75 mg PO QD 08/23/16 Omeprazole [Prilosec] 40 mg PO BID 08/23/16 Propranolol HCl [Inderal] 20 mg PO TID 08/23/16 Condition: Stable Disposition: 01 HOME, SELF-CARE Decision to Admit: NO Date of Decison to Admit: 08/23/16 Decision Time: 10:03
[2016-08-23] MEDS ORDERED: clonazePAM 0.5 MG TABLET PO ONE (09:26)
[2016-08-23 10:27] VITALS: BP 118/85
== END 2016-08-23 10:25 | disposition home or self-care (01) ==
LOC: ED 08:58
DX: F41.9 Anxiety disorder, unspecified (principal)
CPT/HCPCS: 99283

== ENCOUNTER 2016-09-17 10:00 | Emergency (ER) | payer OTHER ==
[2016-09-17 10:17] VITALS: BP 125/80
--- NOTE | 2016-09-17 10:19 | ED Physician Documentation ---
Skin Rash - HISTORIAN Historian: patient - HPI Stated Complaint: tender rash in axilla L Chief Complaint: Skin Rash Additional Information: started 2 weeks ago as an "ingrown hair" he has squeeezed it a few times, now with multiple small tender reddened areas in L axilla. one with small 1mm central ulcuration, not fluculent. mildly tender. One prev similar episode. Onset: days ago Timing: still present Duration: persistent since Location: L axillary Quality: painful, burning Identified Cause?: No Where: home Context: Medication Exposure: none Context: Food Exposure: none Further Comments: no - ROS CONST: none CVS/RESP: none EYES/ENT: none GI/: none MS/SKIN/LYMPH: none NEURO/PSYCH: none - PAST HX Past History: hypertension Other History: none Surgeries/Procedures: No Allergies/Adverse Reactions: Allergies Allergy/AdvReac Type Severity Reaction Status Date / Time aripiprazole [From Abilify] Allergy facial Verified 09/17/16 10:10 twitching tramadol Allergy Verified 09/17/16 10:10 hydroxyzine HCl AdvReac Tremors Verified 09/17/16 10:10 [From Vistaril] hydroxyzine pamoate AdvReac Tremors Verified 09/17/16 10:10 [From Vistaril] Home Medications: Ambulatory Orders Medication Instructions Recorded clonazePAM [Klonopin] 1 mg PO TID 07/06/16 Aspirin [Adult Low Dose Aspirin EC] 81 mg PO QDAY 08/23/16 Clopidogrel Bisulfate [Plavix] 75 mg PO QD 08/23/16 Omeprazole [Prilosec] 40 mg PO BID 08/23/16 Propranolol HCl [Inderal] 20 mg PO TID 08/23/16 - SOCIAL HX Smoking History: non-smoker Alcohol Use: none Drug Use: none - FAMILY HX Family History: none - VITAL SIGNS Vital Signs: Vital Signs Temp Pulse Resp BP Pulse Ox 118/85 08/23/16 10:25 - REVIEWED ASSESSMENTS Nursing Assessment Reviewed: Yes Vitals Reviewed: Yes Skin Rash Physical Exam - EXAM General Appearance: no acute distress, alert Skin: tender indurated area, other. No: abscess, pointing fluctuant with erythema (multiple 1cm - 3cm erythema, indurated , tender areas L axilla. ) Location: other Character: erythematous Symptoms: warmth, tenderness, swelling, induration. No: weeping Extremities: non-tender EENT: eyes nml inspection, pharynx nml Neck: no swelling Respiratory: no resp distress CVS: reg. rate & rhythm Abdomen: non-tender Neuro/Psych: oriented x3, motor nml, sensation nml, mood/affect nml Discharge Clincal Impression: Cellulitis of axilla, left, MRSA (methicillin resistant Staphylococcus aureus) infection Referrals: Cyn Roberson, PRN [Primary Care Provider] - 2 Days Home Medications: Ambulatory Orders clonazePAM [Klonopin] 1 mg PO TID 07/06/16 Aspirin [Adult Low Dose Aspirin EC] 81 mg PO QDAY 08/23/16 Clopidogrel Bisulfate [Plavix] 75 mg PO QD 08/23/16 Omeprazole [Prilosec] 40 mg PO BID 08/23/16 Propranolol HCl [Inderal] 20 mg PO TID 08/23/16 Condition: Good Disposition: 01 HOME, SELF-CARE Decision to Admit: NO Date of Decison to Admit: 09/17/16 Decision Time: 10:19
== END 2016-09-17 10:24 | disposition home or self-care (01) ==
LOC: ED 10:00
DX: L03.112 Cellulitis of left axilla (principal); B95.62 Methicillin resistant Staphylococcus aureus infection as the cause of diseases classified elsewhere
CPT/HCPCS: 99283

== ENCOUNTER 2016-10-14 11:36 | Emergency (ER) | payer OTHER ==
--- NOTE | 2016-10-14 11:59 | ED Physician Documentation ---
Psychological Disorders - HISTORIAN Historian: patient - HPI Stated Complaint: suicidal ideation Chief Complaint: Psychological Disorder Onset: days ago Intent: wants to escape, prior thoughts of suicide Severity: severe Situational Problems: Yes Related To: other ( of brother) Further Comments: yes (36 year old male patient presents with suicidal thoughts and plan. Patient reports his brother 3 weeks ago unexpected. Reports increased depression and anxiety related to his brother's . Patient reports "withdrawing from klonopin". States he is out of his klonopin. Patient states he would use a gun or take all of his heart pills.) - Associated Symptoms Symptoms: depressed Suicidal: specific plan Ingestion: wanted to "escape" - ROS CONST: none NEURO/PSYCH: anxiety, depression EYES/ENT: none CVS/RESP: none GI/: denies: nausea MS/SKIN/LYMPH: denies: joint pain - PAST HX Psychiatric problems: schizophrenia DVT/PE Risk Factors: none Lung, Cardiac, DM: hypertension, other (HLD) Surgical History: angioplasty (1st diagonal) Allergies/Adverse Reactions: Allergies Allergy/AdvReac Type Severity Reaction Status Date / Time aripiprazole [From Abilify] Allergy facial Verified 10/14/16 11:51 twitching tramadol Allergy Verified 10/14/16 11:51 hydroxyzine HCl AdvReac Tremors Verified 10/14/16 11:51 [From Vistaril] hydroxyzine pamoate AdvReac Tremors Verified 10/14/16 11:51 [From Vistaril] Home Medications: Ambulatory Orders Medication Instructions Recorded clonazePAM [Klonopin] 1 mg PO TID 07/06/16 Aspirin [Adult Low Dose Aspirin EC] 81 mg PO QDAY 08/23/16 Clopidogrel Bisulfate [Plavix] 75 mg PO QD 08/23/16 Omeprazole [Prilosec] 40 mg PO BID 08/23/16 Propranolol HCl [Inderal] 20 mg PO TID 08/23/16 - Social HX Smoking History: cigarettes - Family HX Family HX: mental illness - VITAL SIGNS Vital Signs: Vital Signs Temp Pulse Resp BP Pulse Ox 98.2 F 73 20 133/82 94 10/14/16 11:45 10/14/16 11:45 10/14/16 11:45 10/14/16 11:45 10/14/16 11:45 - REVIEWED ASSESSMENTS Nursing Assessment Reviewed: Yes Vitals Reviewed: Yes Progress - Progress Progress: director of food and nutrition services consulted - working on inpatient placement. Patient reports being out of his klonopin, uncertain of how long. Patient resting quietly in room. Has complained of anxiety, but resting quietly , HR 70; calm and cooperative. [id number] Jamil at [facility] inpatient psychiatric facility. Patient agrees with voluntary inpatient. - EKG/XRAY/CT EKG: rhythm (SR, Rate 73, no acute changes. ) ED Results Lab/Radiology - Lab Results Lab Results: Lab Results 10/14/16 10/14/16 10/14/16 12:00 12:00 12:00 WBC 12.10 K/ul H K/ul (4.00-12.00) RBC 5.20 M/ul M/ul (3.90-5.20) Hgb 16.2 g/dL g/dL (12.0-18.0) Hct 48.1 % % (37.0-53.0) MCV 92.5 fl fl (80.0-100.0) MCH 31.2 pg pg (28.0-34.0) MCHC 33.7 g/dL g/dL (30.0-36.0) RDW 14.9 % H % (11.3-14.3) Plt Count 227 K/mm3 K/mm3 (130-400) Neut % (Auto) 67.1 % % (39.0-79.0) Lymph % (Auto) 20.9 % % (16.0-50.0) [place] % (Auto) 6.0 % % (0.0-11.0) Eos % (Auto) 3.6 % % (0.0-6.8) Baso % (Auto) 0.9 (0.0-1.5) Neut # (Auto) 8.1 # k/uL H # k/uL (1.4-7.7) Lymph # (Auto) 2.5 # k/uL # k/uL (0.6-4.0) [place] # (Auto) 0.7 # k/uL # k/uL (0.0-0.9) Eos # (Auto) 0.4 # k/uL # k/uL (0.0-0.6) Baso # (Auto) 0.1 # k/uL # k/uL (0.0-0.5) Reactive Lymphs % 1.6 % % (0.0-5.0) Reactive Lymphs # 0.2 # k/uL # k/uL (0.0-0.8) Carbon Dioxide 29 mmol/L mmol/L (20-32) BUN 5 mg/dL L mg/dL (10-26) Creatinine 0.7 mg/dL mg/dL (0.4-1.5) Estimated Creat Clear 165 Est GFR ( Amer) > 60 (60 - ) Est GFR (Non-Af Amer) > 60 (60 - ) Glucose 123 mg/dL H mg/dL (70-99) Calcium 9.8 mg/dL mg/dL (8.5-10.5) Total Bilirubin 0.5 mg/dL mg/dL (0.2-1.2) AST 19 U/L U/L (0-41) ALT 19 U/L U/L (0-45) Alkaline Phosphatase 80 U/L U/L (46-116) Total Protein 7.5 g/dL g/dL (6.0-8.5) Albumin 4.8 g/dL g/dL (3.0-5.5) Acetaminophen < 10.0 ug/mL L ug/mL (10.0-30.0) - Orders Orders: ED Orders Category Date Time Status ACETAMINOPHEN LEVEL Stat Lab 10/14/16 12:00 Completed CBC/PLATELET/DIFF Stat Lab 10/14/16 12:00 Completed CMP Stat Lab 10/14/16 12:00 Completed DRUG SCREEN URINE MEDICAL ONLY Stat Lab 10/14/16 Ordered SALICYLATE LEVEL Stat Lab 10/14/16 12:00 Received UA W/MICRO IF INDICATED Stat Lab 10/14/16 11:50 Ordered EKG WITH COMPARISON Stat Ther 10/14/16 11:50 Ordered Psych Physical Exam - Physical Exam General Appearance: mild distress Mental Status: mood/affect nml Suicide Attempts: admit Orientation: nml x3 Cranial Nerves: CN's intact as tested Sensory, Motor: nml motor response, nml sensory response, nml reflexes, nml gait Neck/Back: normal inspection, thyroid normal Respiratory: no resp distress, chest non-tender, breath sounds normal CVS: reg rate & rhythm, heart sounds normal, equal pulses, no murmur, no gallop , PMI nml, no JVD, no friction rub, 24 Abdomen: non-tender, no organomegaly, nml bowel sounds, no distention Skin: normal color, warm/dry, NR, INT, PAL, DR Extremities: non-tender, normal range of motion, no evidence of injury, 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
[2016-10-14 12:18] LABS: BASOPHILS % 0.9 (0.0-1.5); EOSINOPHILS % 3.6 % (0.0-6.8); MEAN CORPUSCULAR HEMOGLOBIN 31.2 pg (28.0-34.0); MEAN CORPUSCULAR VOLUME 92.5 fl (80.0-100.0); NEUTROPHILS # 8.1 # k/uL (1.4-7.7)
[2016-10-14 12:29] LABS: eGFR (African) > 60; eGFR (Non-African) > 60
[2016-10-14 17:45] VITALS: BP 131/87
== END 2016-10-14 17:44 | disposition home or self-care (01) ==
LOC: ED 11:36
DX: R45.851 Suicidal ideations (principal)
CPT/HCPCS: 36415; 80051; 80053; 80302; 80304; 85025; 99283; G0477; G0479

== ENCOUNTER 2016-10-24 12:26 | Emergency (ER) | payer OTHER ==
--- NOTE | 2016-10-24 12:57 | ED Physician Documentation ---
General Adult - HISTORIAN Historian: patient - HPI Stated Complaint: burning stomach pain Chief Complaint: General Adult Onset: days ago Timing: still present Severity: moderate Further Comments: yes (Pt is a 36 yo male with c/o epigastric pain x 1 week. Pt has had this problem before with acid reflex and had been taking Prilosec, which was working until about a week ago. Pt describes the pain as sometimes burning and sometimes spasming. Pt also has hx RI x 2 and anxiety.) - ROS CONST: no problems EYES/ENT: none CVS/RESP: none GI/: abdominal pain (epigastric) MS/SKIN/LYMPH: none - PAST HX Past History: other (Bipolar d/o, GERD, Anxiety/Depression, RI x 2.) Allergies/Adverse Reactions: Allergies Allergy/AdvReac Type Severity Reaction Status Date / Time aripiprazole [From Abilify] Allergy facial Verified 10/24/16 12:46 twitching tramadol Allergy Verified 10/24/16 12:46 hydroxyzine HCl AdvReac Tremors Verified 10/24/16 12:46 [From Vistaril] hydroxyzine pamoate AdvReac Tremors Verified 10/24/16 12:46 [From Vistaril] Home Medications: Ambulatory Orders Medication Instructions Recorded clonazePAM [Klonopin] 1 mg PO TID 07/06/16 Aspirin [Adult Low Dose Aspirin EC] 81 mg PO QDAY 08/23/16 Clopidogrel Bisulfate [Plavix] 75 mg PO QD 08/23/16 Omeprazole [Prilosec] 40 mg PO BID 08/23/16 Propranolol HCl [Inderal] 20 mg PO TID 08/23/16 Dicyclomine HCl [Bentyl] 20 mg PO Q6 PRN #20 tablet 10/24/16 - SOCIAL HX Smoking History: cigarettes - FAMILY HX Family History: No - VITAL SIGNS Vital Signs: Vital Signs Temp Pulse Resp BP Pulse Ox 98.5 F 80 16 132/84 97 10/24/16 12:41 10/24/16 12:41 10/24/16 12:41 10/24/16 12:41 10/24/16 12:41 - REVIEWED ASSESSMENTS Nursing Assessment Reviewed: Yes Vitals Reviewed: Yes Progress - Progress Progress: NS 500 cc IVF GI cocktail no change Protonix 40 mg IV no change Bentyl 20 mg po improved after Bentyl Rx Bentyl 20 mg QID prn #20, RF 1, and f/u pcp. General Adult Physical Exam - PHYSICAL EXAM GENERAL APPEARANCE: mild distress EENT: pharynx normal NECK: normal inspection, supple RESPIRATORY: no resp distress, chest non-tender, breath sounds normal CVS: reg rate & rhythm, heart sounds normal ABDOMEN: soft, normal bowel sounds, tenderness (epigastric) BACK: normal inspection, no CVA tenderness SKIN: warm/dry, normal color EXTREMITIES: non-tender, normal range of motion, no evidence of injury NEURO: oriented X3, motor nml, sensation nml Discharge Clincal Impression: Possible IBS Abdominal pain Qualifiers: Abdominal location: upper abdomen, unspecified Qualified Code(s): R10.10 - Upper abdominal pain, unspecified Prescriptions: Dicyclomine HCl [Bentyl] 20 mg PO Q6 PRN #20 tablet PRN Reason: Abdominal Pain Referrals: Henry Miller MD [Primary Care Provider] - 2 Days Home Medications: Ambulatory Orders clonazePAM [Klonopin] 1 mg PO TID 07/06/16 Aspirin [Adult Low Dose Aspirin EC] 81 mg PO QDAY 08/23/16 Clopidogrel Bisulfate [Plavix] 75 mg PO QD 08/23/16 Omeprazole [Prilosec] 40 mg PO BID 08/23/16 Propranolol HCl [Inderal] 20 mg PO TID 08/23/16 Dicyclomine HCl [Bentyl] 20 mg PO Q6 PRN #20 tablet 10/24/16 Condition: Stable Disposition: 01 HOME, SELF-CARE Decision to Admit: NO Decision Time: 15:26
[2016-10-24] MEDS ORDERED: Lidocaine 2%Visc 15ml 20 MG/ML UDC ONE (13:25)
[2016-10-24] MEDS ORDERED: PANTOPRAZOLE SODIUM INJ. 40 MG VIAL ONE (13:25)
[2016-10-24] MEDS ORDERED: 0.9 % SODIUM CHLORIDE 50 ML IV ONE (13:26)
[2016-10-24] MEDS: PANTOPRAZOLE SODIUM 40 MG in 0.9 % SODIUM CHLORIDE 50 ML IV SCH (13:32)
[2016-10-24 13:37] LABS: BASOPHILS % 0.6 (0.0-1.5); EOSINOPHILS % 4.2 % (0.0-6.8); MEAN CORPUSCULAR HEMOGLOBIN 31.7 pg (28.0-34.0); MEAN CORPUSCULAR VOLUME 91.4 fl (80.0-100.0); MONOCYTES % 4.1 % (0.0-11.0); NEUTROPHILS # 7.1 # k/uL (1.4-7.7)
[2016-10-24] MEDS ORDERED: MAGNESIUM HYDROXIDE/AL HYDROX 30 ML UDC PO ONE (13:48)
[2016-10-24 13:54] LABS: eGFR (African) > 60; eGFR (Non-African) > 60
[2016-10-24] MEDS: MAG HYDROX/AL HYDROX/SIMETH 30 ML, Lidocaine 2%Visc 15ml 20 MG, PHENobarb/HYOSCY/ATROPI... PO ONE ×3 (14:02)
[2016-10-24] MEDS: 0.9 % SODIUM CHLORIDE 500 ML IV ONE (14:02)
--- NOTE | 2016-10-24 14:28 | Diagnostic Imaging Report ---
MATY NIEVES [facility] [id number] [facility] [address] [place] [address]. [id number] Report Submission Date: Oct 24, 2016 2:19:51 PM CDT Patient Study Name: ALISA CRABTREE Date: Oct 24, 2016 1:45:09 PM CDT Modality Type: US Gender: M Description: US ABD LIMITED : 76 Institution: [facility] Physician: MATY NIEVES Examination: Ultrasound gallbladder History: Epigastric discomfort Findings: Sonographic evaluation of the right upper quadrant demonstrates the gallbladder without stones or sludge. Gallbladder wall measures 2.6 mm. Common bile duct measures 2.9 mm. No intrahepatic biliary dilation. Liver demonstrates normal homogeneous echogenicity. No mass or cyst. Normal flow on color analysis. Normal Doppler waveforms. Right kidney measures 10.3 cm in length. No cortical mass or cyst. No hydronephrosis. Pancreatic region without gross irregularity. Impression: No gallstone or obstruction. Unremarkable abdominal ultrasound. Electronically signed on Oct 24, 2016 2:19:51 PM CDT by: Femi VIEYRA
[2016-10-24] MEDS: DICYCLOMINE HCL 20 MG TABLET PO ONE (14:42)
[2016-10-24 16:00] VITALS: BP 127/61
[2016-10-25 05:51] LABS: APPEARANCE,URINE CLEAR (CLEAR); COLOR,URINE YELLOW (YELLOW); OCCULT BLOOD,URINE NEGATIVE (NEGATIVE)
[2016-10-25 05:52] LABS: UROBILINOGEN URINE 0.2 Eu (0.2-1.0)
== END 2016-10-24 15:45 | disposition home or self-care (01) ==
LOC: ED 12:26
DX: R10.10 Upper abdominal pain, unspecified (principal)
CPT/HCPCS: 36415; 76705; 80053; 81002; 82150; 85025; A9270; J7060; 96360; 99283; S1016

== ENCOUNTER 2016-11-13 09:43 | Emergency (ER) | payer OTHER ==
[2016-11-13] MEDS ORDERED: 0.9 % SODIUM CHLORIDE 1,000 ML IV ONE (09:56)
[2016-11-13] MEDS ORDERED: LORazepam 1 MG TABLET PO ONE (09:56)
[2016-11-13] MEDS ORDERED: LORazepam 2 MG/ML VIAL ONE (09:57)
[2016-11-13] MEDS: 0.9 % SODIUM CHLORIDE 500 ML IV ONE ×2 (10:00→10:45)
[2016-11-13] MEDS: LORazepam 2 MG/ML VIAL IVP ONE (10:02)
[2016-11-13 10:12] LABS: BASOPHILS % 0.6 (0.0-1.5); EOSINOPHILS % 1.4 % (0.0-6.8); MEAN CORPUSCULAR HEMOGLOBIN 31.4 pg (28.0-34.0); MEAN CORPUSCULAR VOLUME 91.5 fl (80.0-100.0); MONOCYTES % 5.5 % (0.0-11.0); NEUTROPHILS # 11.4 # k/uL (1.4-7.7)
[2016-11-13 10:24] LABS: eGFR (African) > 60; eGFR (Non-African) > 60
[2016-11-13] MEDS ORDERED: DIAZEPAM 5 MG/ML DISP.SYRIN ONE (10:27)
[2016-11-13] MEDS: DIAZEPAM 5 MG/ML DISP.SYRIN IVP ONE (10:28)
--- NOTE | 2016-11-13 10:32 | Diagnostic Imaging Report ---
[facility] [address] [facility] [address] [address] Report Submission Date: Nov 13, 2016 10:06:45 AM CDT Patient Study Name: ALISA CRABTREE Date: Nov 13, 2016 9:55:23 AM CDT Modality Type: CR Gender: M Description: CHEST : 76 Institution: [facility] Physician: MATY NIEVES - ER Ap portable upright radiographs of the chest Clinical history: Chest pain Technique: anterior /posterior portable upright Findings: The lung gabriel are clear. The heart and mediastinal structures are normal. The bony thorax is unremarkable. No pneumothorax or pleural effusion is seen. Impression: No acute pulmonary disease Electronically signed on Nov 13, 2016 10:06:45 AM CDT by: Kavon VIEYRA
--- NOTE | 2016-11-13 10:40 | ED Physician Documentation ---
General Adult - HISTORIAN Historian: patient - HPI Stated Complaint: "Meth Use" Chief Complaint: General Adult Onset: days ago Timing: still present Severity: moderate Further Comments: yes (Pt is a 36 yo male who states that he has been using methamphetamine daily for the past two weeks. Pt has hx HI x 2 and also c/o chest pain.) - ROS CONST: other (anxious) EYES/ENT: none CVS/RESP: chest pain GI/: none MS/SKIN/LYMPH: none NEURO/PSYCH: anxiety - PAST HX Past History: AMI (x2), other (Anxiety, Bipolar d/o, GERD, HLD, HTN) Allergies/Adverse Reactions: Allergies Allergy/AdvReac Type Severity Reaction Status Date / Time aripiprazole [From Abilify] Allergy facial Verified 10/24/16 12:46 twitching tramadol Allergy Verified 10/24/16 12:46 hydroxyzine HCl AdvReac Tremors Verified 10/24/16 12:46 [From Vistaril] hydroxyzine pamoate AdvReac Tremors Verified 10/24/16 12:46 [From Vistaril] Home Medications: Ambulatory Orders Medication Instructions Recorded clonazePAM [Klonopin] 1 mg PO TID 07/06/16 Aspirin [Adult Low Dose Aspirin EC] 81 mg PO QDAY 08/23/16 Clopidogrel Bisulfate [Plavix] 75 mg PO QD 08/23/16 Omeprazole [Prilosec] 40 mg PO BID 08/23/16 Propranolol HCl [Inderal] 20 mg PO TID 08/23/16 Dicyclomine HCl [Bentyl] 20 mg PO Q6 PRN #20 tablet 10/24/16 - SOCIAL HX Smoking History: cigarettes Drug Use: methamphetamines - FAMILY HX Family History: No - VITAL SIGNS Vital Signs: Vital Signs Temp Pulse Resp BP Pulse Ox 98 F 130 H 22 127/61 98 11/13/16 09:45 11/13/16 09:48 11/13/16 09:45 10/24/16 15:58 11/13/16 09:48 - REVIEWED ASSESSMENTS Nursing Assessment Reviewed: Yes Vitals Reviewed: Yes Progress - Progress Progress: NS 1 L IVF Ativan 1 mg IV Diazepam 5 mg IV HR 130-->95 improved Pt given tel numbers for [facility] if he would like to seek help for drug abuse. - EKG/XRAY/CT EKG: rhythm (sinus tachycardia; LAD.) XRAY: chest (no acute pulmonary process) ED Results Lab/Radiology - Lab Results Lab Results: Lab Results 11/13/16 11/13/16 11/13/16 09:55 09:55 09:55 WBC 14.70 K/ul H K/ul (4.00-12.00) RBC 5.26 M/ul H M/ul (3.90-5.20) Hgb 16.5 g/dL g/dL (12.0-18.0) Hct 48.1 % % (37.0-53.0) MCV 91.5 fl fl (80.0-100.0) MCH 31.4 pg pg (28.0-34.0) MCHC 34.3 g/dL g/dL (30.0-36.0) RDW 13.9 % % (11.3-14.3) Plt Count 190 K/mm3 K/mm3 (130-400) Neut % (Auto) 77.5 % % (39.0-79.0) Lymph % (Auto) 13.5 % L % (16.0-50.0) Reagan % (Auto) 5.5 % % (0.0-11.0) Eos % (Auto) 1.4 % % (0.0-6.8) Baso % (Auto) 0.6 (0.0-1.5) Neut # (Auto) 11.4 # k/uL H # k/uL (1.4-7.7) Lymph # (Auto) 2.0 # k/uL # k/uL (0.6-4.0) Reagan # (Auto) 0.8 # k/uL # k/uL (0.0-0.9) Eos # (Auto) 0.2 # k/uL # k/uL (0.0-0.6) Baso # (Auto) 0.1 # k/uL # k/uL (0.0-0.5) Reactive Lymphs % 1.4 % % (0.0-5.0) Reactive Lymphs # 0.2 # k/uL # k/uL (0.0-0.8) Sodium 139 mmol/L mmol/L (136-145) Potassium 3.4 mmol/L L mmol/L (3.5-5.0) Chloride 101 mmol/L mmol/L (98-110) Carbon Dioxide 26 mmol/L mmol/L (20-32) BUN 8 mg/dL L mg/dL (10-26) Creatinine 0.9 mg/dL mg/dL (0.4-1.5) Estimated Creat Clear 107 Est GFR ( Amer) > 60 (60 - ) Est GFR (Non-Af Amer) > 60 (60 - ) Glucose 141 mg/dL H mg/dL (70-99) Calcium 10.1 mg/dL mg/dL (8.5-10.5) Total Bilirubin 0.5 mg/dL mg/dL (0.2-1.2) AST 28 U/L U/L (0-41) ALT 26 U/L U/L (0-45) Alkaline Phosphatase 94 U/L U/L (46-116) Creatine Kinase 164 U/L U/L (0-225) CK-MB (CK-2) 2.3 ng/mL ng/mL (0.0-5.6) Troponin I < 0.03 ng/mL L ng/mL (0.03-0.06) Total Protein 8.2 g/dL g/dL (6.0-8.5) Albumin 5.0 g/dL g/dL (3.0-5.5) - Orders Orders: ED Orders Category Date Time Status Continuous EKG monitoring Q30M Care 11/13/16 09:48 Active Continuous Pulse Oximetry Q30M Care 11/13/16 09:48 Active CHEST 1 VIEW [RAD] Stat Exams 11/13/16 09:48 Completed CBC/PLATELET/DIFF Routine Lab 11/13/16 09:55 Completed CKMB Stat Lab 11/13/16 09:55 Completed CMP Routine Lab 11/13/16 09:55 Completed CREATINE KINASE Routine Lab 11/13/16 09:55 Completed TROPONIN I (cTnI) Stat Lab 11/13/16 09:55 Completed 0.9 % Sodium Chloride [Normal Saline] 1,000 ml Med 11/13/16 09:56 Discontinued IV .STK-MED 0.9 % Sodium Chloride [Normal Saline] 500 ml Med 11/13/16 09:55 Active IV NOW 0.9 % Sodium Chloride [Normal Saline] 500 ml Med 11/13/16 10:27 Active IV NOW Diazepam [Valium] Med 11/13/16 10:27 Discontinued 5 mg .ROUTE .STK-MED ONE Diazepam [Valium] Med 11/13/16 10:26 Discontinued 5 mg IVP NOW ONE LORazepam [Ativan] Med 11/13/16 10:08 Discontinued 1 mg IVP NOW ONE LORazepam [Ativan] Med 11/13/16 09:56 Discontinued 1 mg PO NOW ONE LORazepam [Ativan] Med 11/13/16 09:57 Discontinued 2 mg .ROUTE .STK-MED ONE Oxygen Daily Oxygen 11/13/16 10:00 Ordered EKG WITH COMPARISON Stat Ther 11/13/16 09:48 Ordered General Adult Physical Exam - PHYSICAL EXAM GENERAL APPEARANCE: moderate distress EENT: eye inspection normal, pharynx normal NECK: normal inspection, supple RESPIRATORY: no resp distress, chest non-tender, breath sounds normal CVS: tachycardia ABDOMEN: soft, no organomegaly, normal bowel sounds BACK: normal inspection, no CVA tenderness SKIN: warm/dry, normal color EXTREMITIES: non-tender, normal range of motion, no evidence of injury NEURO: oriented X3, motor nml, sensation nml, other (anxious) Discharge Clincal Impression: Methamphetamine use Referrals: Henry Miller MD [Primary Care Provider] - Home Medications: Ambulatory Orders clonazePAM [Klonopin] 1 mg PO TID 07/06/16 Aspirin [Adult Low Dose Aspirin EC] 81 mg PO QDAY 08/23/16 Clopidogrel Bisulfate [Plavix] 75 mg PO QD 08/23/16 Omeprazole [Prilosec] 40 mg PO BID 08/23/16 Propranolol HCl [Inderal] 20 mg PO TID 08/23/16 Dicyclomine HCl [Bentyl] 20 mg PO Q6 PRN #20 tablet 10/24/16 Condition: Stable Disposition: 01 HOME, SELF-CARE Decision to Admit: NO Decision Time: 13:25
[2016-11-13 13:33] VITALS: BP 103/58
[2016-11-14 05:27] LABS: APPEARANCE,URINE CLOUDY (CLEAR); COLOR,URINE AMBER (YELLOW); OCCULT BLOOD,URINE NEGATIVE (NEGATIVE); PH URINE 6.5 (5.0 - 8.0)
[2016-11-14 05:28] LABS: AMPHETAMINE NON NEGATIVE ng/mL (<1000); BARBITURATES NEGATIVE ng/mL (<300); CANNABINOIDS NEGATIVE ng/mL (< 50); COCAINE NEGATIVE ng/mL (<150); METHAMPHETAMINE NON NEGATIVE ng/mL (<1000); METHYLENEDIOXYMETHAMPHETAMINE NEGATIVE ng/mL (<500); MORPHINE NEGATIVE ng/mL (<300)
== END 2016-11-13 13:32 | disposition home or self-care (01) ==
LOC: ED 09:43
DX: F15.10 Other stimulant abuse, uncomplicated (principal)
CPT/HCPCS: 71010; 80053; 82550; 82553; 84484; 85025; J2060; J3360; J7030; J7060; 51701; 80377; 81002; 96361; 96374; 96375; 99283; G0481; S1016

== ENCOUNTER 2016-11-18 10:55 | Emergency (ER) | payer OTHER ==
[2016-11-18] MEDS ORDERED: clonazePAM 0.5 MG TABLET PO ONE (12:03)
[2016-11-18] MEDS: clonazePAM 1 MG TABLET PO ONE (12:04)
--- NOTE | 2016-11-18 12:38 | ED Physician Documentation ---
General Adult - HISTORIAN Historian: patient - HPI Stated Complaint: clonazepan withdrawl Chief Complaint: General Adult Additional Information: out of klonopin, anxious Onset: days ago (4) Timing: still present Severity: moderate Further Comments: no - ROS CONST: other (anxiety) EYES/ENT: none CVS/RESP: none GI/: none MS/SKIN/LYMPH: none NEURO/PSYCH: anxiety. denies: headache - PAST HX Past History: other (substance abuse, anxiety) Other History: other (gerd, cad) Surgeries/Procedures: none Immunizations: referred to PCP Allergies/Adverse Reactions: Allergies Allergy/AdvReac Type Severity Reaction Status Date / Time aripiprazole [From Abilify] Allergy facial Verified 11/18/16 11:50 twitching tramadol Allergy Verified 11/18/16 11:50 hydroxyzine HCl AdvReac Tremors Verified 11/18/16 11:50 [From Vistaril] hydroxyzine pamoate AdvReac Tremors Verified 11/18/16 11:51 [From Vistaril] Home Medications: Ambulatory Orders Medication Instructions Recorded clonazePAM [Klonopin] 1 mg PO TID 07/06/16 Aspirin [Adult Low Dose Aspirin EC] 81 mg PO QDAY 08/23/16 Clopidogrel Bisulfate [Plavix] 75 mg PO QD 08/23/16 Omeprazole [Prilosec] 40 mg PO BID 08/23/16 Propranolol HCl [Inderal] 20 mg PO TID 08/23/16 Dicyclomine HCl [Bentyl] 20 mg PO Q6 PRN #20 tablet 10/24/16 Ranitidine HCl [Zantac] 300 mg PO DAILY 11/18/16 - SOCIAL HX Smoking History: cigarettes Alcohol Use: other (quit) Drug Use: methamphetamines - FAMILY HX Family History: No - VITAL SIGNS Vital Signs: Vital Signs Temp Pulse Resp BP Pulse Ox 99.8 F H 60 20 130/71 97 11/18/16 10:55 11/18/16 10:55 11/18/16 10:55 11/18/16 10:55 11/18/16 10:55 - REVIEWED ASSESSMENTS Nursing Assessment Reviewed: Yes Vitals Reviewed: Yes Progress - Results/Orders Results/Orders: no testing ordered - Progress Progress: pt. given klonipin 1 mg p.o. in er with easing of pt's symptoms Critical Care Note - Critical Care Note Total Time (mins): 0 ED Results Lab/Radiology - Lab Results Lab Results: none ordered - Radiology Radiology Impressions: none taken - Orders Orders: ED Orders Category Date Time Status clonazePAM [Klonopin] Med 11/18/16 12:03 Discontinued 1 mg PO .STK-MED ONE clonazePAM [Klonopin] Med 11/18/16 11:55 Discontinued 1 mg PO NOW ONE General Adult Physical Exam - PHYSICAL EXAM GENERAL APPEARANCE: mild distress EENT: eye inspection normal, ENT inspection normal, pharynx normal, no signs of dehydration, ANA, no nystagmus, TM's nml NECK: normal inspection, thyroid normal, supple RESPIRATORY: no resp distress, chest non-tender, breath sounds normal CVS: reg rate & rhythm, heart sounds normal, equal pulses, no murmur, no gallop , PMI nml ABDOMEN: soft, no organomegaly, normal bowel sounds, no abdominal bruit, no distension, non-tender BACK: normal inspection, no CVA tenderness SKIN: warm/dry, normal color EXTREMITIES: non-tender, normal range of motion, no evidence of injury NEURO: oriented X3, CN's nml as tested, motor nml, sensation nml, other (anxious ) Discharge Clincal Impression: Anxiety Referrals: Henry Miller MD [Primary Care Provider] - 2 Days Home Medications: Ambulatory Orders clonazePAM [Klonopin] 1 mg PO TID 07/06/16 Aspirin [Adult Low Dose Aspirin EC] 81 mg PO QDAY 08/23/16 Clopidogrel Bisulfate [Plavix] 75 mg PO QD 08/23/16 Omeprazole [Prilosec] 40 mg PO BID 08/23/16 Propranolol HCl [Inderal] 20 mg PO TID 08/23/16 Dicyclomine HCl [Bentyl] 20 mg PO Q6 PRN #20 tablet 10/24/16 Ranitidine HCl [Zantac] 300 mg PO DAILY 11/18/16 Comments: discharged with scripts for Klonopin 2 mg #14 1/2 p.o. qid and Propranolol 40 mg #12 1/2 p.o. tid Condition: Stable Disposition: 01 HOME, SELF-CARE Decision to Admit: NO Decision Time: 12:37
[2016-11-18 12:40] VITALS: BP 127/76
== END 2016-11-18 12:39 | disposition home or self-care (01) ==
LOC: ED 10:55
DX: F41.9 Anxiety disorder, unspecified (principal)
CPT/HCPCS: 99283

== ENCOUNTER 2017-01-11 14:13 | Emergency (ER) | payer OTHER ==
[2017-01-11 14:30] VITALS: BP 125/76
--- NOTE | 2017-01-11 14:52 | ED Physician Documentation ---
Allergy Symptoms - HISTORIAN Historian: patient - HPI Stated Complaint: Generalized bug bites Chief Complaint: General Adult Additional Information: pt and sister moved into apt 2 days ago next am both had multi bites skin found apparent bed bugs gross contamination as identified from picture bed bugs Onset: days ago (1) Duration: continues in ED, worse Associated Symptoms: skin rash Swelling: face, hands, feet, diffuse Shortness of Breath: moderate Trouble Swallowing/ Speaking: none Identified Cause: other (probably bed bugs) Where: home (rented apartment) Further Comments: yes (both pt and sister have significant illnesses) - ROS EYES/ENT: eye redness, eye itching (rt eye) CVS/RESP: other (hx ihd) NEURO/PSYCH: none, anxiety - PAST HX Prior Allergic Reaction: none Medical History: other (ihd copd) Allergies/Adverse Reactions: Allergies Allergy/AdvReac Type Severity Reaction Status Date / Time aripiprazole [From Abilify] Allergy facial Verified 01/11/17 14:30 twitching tramadol Allergy Verified 01/11/17 14:30 hydroxyzine HCl AdvReac Tremors Verified 01/11/17 14:30 [From Vistaril] hydroxyzine pamoate AdvReac Tremors Verified 01/11/17 14:30 [From Vistaril] Home Medications: Ambulatory Orders Medication Instructions Recorded clonazePAM [Klonopin] 1 mg PO TID 07/06/16 Aspirin [Adult Low Dose Aspirin EC] 81 mg PO QDAY 08/23/16 Clopidogrel Bisulfate [Plavix] 75 mg PO QD 08/23/16 Omeprazole [Prilosec] 40 mg PO BID 08/23/16 Propranolol HCl [Inderal] 20 mg PO TID 08/23/16 Ranitidine HCl [Zantac] 300 mg PO DAILY 11/18/16 - SOCIAL HX Smoking History: greater than 1 pack/day (3 ppd) Alcohol Use: none Drug Use: none - FAMILY HX Family History: No - VITAL SIGNS Vital Signs: Vital Signs Temp Pulse Resp BP Pulse Ox 70 16 125/76 96 01/11/17 14:13 01/11/17 14:13 01/11/17 14:13 01/11/17 14:13 - REVIEWED ASSESSMENTS Nursing Assessment Reviewed: Yes Vitals Reviewed: Yes Allergy Symptons Exam - EXAM General Appearance: other (many very diffuse insect bites-appears BEDBUGS) Skin: macular, papular, generalized Extremities: nml ROM Neck: nml inspection Respiratory: no resp. distress CVS: reg rate & rhythm Abdomen: non-tender Neuro: oriented X3 Discharge Clincal Impression: severe bed bug infestation-multi bites, adv IHD COPD NICOTINE ABUSE Referrals: Henry Miller MD [Primary Care Provider] - 2 Days Comments: MUST ELIMINATE BUGS AND EGGS-INSTRUCTIONS ON HOW TO ATTEMPT ERADICATION. 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
== END 2017-01-11 14:50 | disposition home or self-care (01) ==
LOC: ED 14:13
DX: S30.860A Insect bite (nonvenomous) of lower back and pelvis, initial encounter (principal); J44.9 Chronic obstructive pulmonary disease, unspecified; X58.XXXA Exposure to other specified factors, initial encounter; Y93.9 Activity, unspecified; Y99.9 Unspecified external cause status
CPT/HCPCS: 99283

== ENCOUNTER 2017-02-15 18:01 | Emergency (ER) | payer OTHER ==
[2017-02-15 18:24] VITALS: BP 132/73
[2017-02-16 05:47] LABS: APPEARANCE,URINE CLEAR (CLEAR); COLOR,URINE YELLOW (YELLOW); OCCULT BLOOD,URINE NEGATIVE (NEGATIVE); UROBILINOGEN URINE 0.2 Eu (0.2-1.0)
== END 2017-02-15 18:15 ==
LOC: ED 18:01
DX: Z53.21 Procedure and treatment not carried out due to patient leaving prior to being seen by health care provider (principal)
CPT/HCPCS: 81002; 99281

== ENCOUNTER 2017-02-16 16:35 | Emergency (ER) | payer OTHER ==
--- NOTE | 2017-02-16 16:45 | ED Physician Documentation ---
General Adult - HISTORIAN Historian: patient - HPI Stated Complaint: Vomiting today x 8 times - cardiac hx, COPD hx Chief Complaint: Nausea,Vomiting,Diarrhea Onset: hours (8) Timing: better Severity: mild Modifying Factors: none Context: none Quality: "pain in pit of stomach" Location: Pain in epigastric area Further Comments: no Last known Well Date: 02/15/17 Last Known Well Time: 16:00 Last known Well Code/Unknown Code: Unknown - ROS CONST: denies: fever, sweating, recent illness EYES/ENT: none CVS/RESP: shortness of breath, cough. denies: chest pain MS/SKIN/LYMPH: none NEURO/PSYCH: denies: headache, fainting, dizziness - PAST HX Past History: other (Cardiac ) Surgeries/Procedures: none Immunizations: referred to PCP Allergies/Adverse Reactions: Allergies Allergy/AdvReac Type Severity Reaction Status Date / Time aripiprazole [From Abilify] Allergy facial Verified 02/16/17 16:47 twitching tramadol Allergy Verified 02/16/17 16:47 hydroxyzine HCl AdvReac Tremors Verified 02/16/17 16:47 [From Vistaril] hydroxyzine pamoate AdvReac Tremors Verified 02/16/17 16:47 [From Vistaril] Home Medications: Ambulatory Orders Medication Instructions Recorded clonazePAM [Klonopin] 1 mg PO TID 07/06/16 Aspirin [Adult Low Dose Aspirin EC] 81 mg PO QDAY 08/23/16 Clopidogrel Bisulfate [Plavix] 75 mg PO QD 08/23/16 Omeprazole [Prilosec] 40 mg PO BID 08/23/16 Propranolol HCl [Inderal] 20 mg PO TID 08/23/16 Ranitidine HCl [Zantac] 300 mg PO DAILY 11/18/16 Dicyclomine HCl [Bentyl] 10 mg PO BID PRN #20 capsule 02/16/17 - SOCIAL HX Smoking History: cigarettes Alcohol Use: none Drug Use: none - FAMILY HX Family History: No - VITAL SIGNS Vital Signs: Vital Signs Temp Pulse Resp BP Pulse Ox 132/73 02/15/17 18:02 - REVIEWED ASSESSMENTS Nursing Assessment Reviewed: Yes Vitals Reviewed: Yes Progress - Results/Orders Results/Orders: Nausea is improved Mild epigastric pain ED Results Lab/Radiology - Radiology Radiology Impressions: Examination: Portable chest History: Chest discomfort Comparison exam: 13 November 2016 Findings: Single view of the chest demonstrates a normal cardiac and mediastinal silhouette. Lung gabriel without focal infiltrate. No effusion. Osseous structures are appropriate for age. Impression: No acute process. Electronically signed on Feb 16, 2017 5:10:23 PM SEO PROFESSIONAL by: Femi Cook General Adult Physical Exam - PHYSICAL EXAM GENERAL APPEARANCE: mild distress RESPIRATORY: no resp distress, wheezes, rhonchi CVS: reg rate & rhythm, heart sounds normal, equal pulses, no murmur ABDOMEN: soft, no organomegaly, normal bowel sounds, tenderness (tenderness over epigastric area ) SKIN: warm/dry, normal color EXTREMITIES: non-tender, normal range of motion NEURO: oriented X3, CN's nml as tested Discharge Clincal Impression: Abdominal pain Qualifiers: Abdominal location: epigastric Qualified Code(s): R10.13 - Epigastric pain Prescriptions: Dicyclomine HCl [Bentyl] 10 mg PO BID PRN #20 capsule PRN Reason: Pain Referrals: Cyn Roberson PRN [Primary Care Provider] - 2 Days Condition: Stable Disposition: 01 HOME, SELF-CARE Decision to Admit: NO Date of Decison to Admit: 02/16/17 Decision Time: 17:53
[2017-02-16] MEDS: 0.9 % SODIUM CHLORIDE 1,000 ML IV ONE (17:00)
[2017-02-16] MEDS: ONDANSETRON HCL/PF 4 MG/ 2ML VIAL IVP ONE (17:03)
[2017-02-16 17:10] LABS: BASOPHILS % 0.7 (0.0-1.5); MEAN CORPUSCULAR VOLUME 91.5 fl (80.0-100.0); MONOCYTES % 6.9 % (0.0-11.0); NEUTROPHILS # 5.3 # k/uL (1.4-7.7)
[2017-02-16 17:19] LABS: eGFR (African) > 60; eGFR (Non-African) > 60
[2017-02-16 18:13] VITALS: BP 122/71
--- NOTE | 2017-02-16 18:25 | Diagnostic Imaging Report ---
LALA BAUTISTA [facility] [address] [facility] [address] [place], [place]. [address] Report Submission Date: Feb 16, 2017 5:10:23 PM [employer] FIELD SERVICE TECHNICIAN Patient Study Name: ALISA CRABTREE Date: Feb 16, 2017 5:00:02 PM [employer] FIELD SERVICE TECHNICIAN Modality Type: CR Gender: M Description: CHEST : 76 Institution: [facility] Physician: LALA BAUTISTA Examination: Portable chest History: Chest discomfort Comparison exam: 13 November 2016 Findings: Single view of the chest demonstrates a normal cardiac and mediastinal silhouette. Lung gabriel without focal infiltrate. No effusion. Osseous structures are appropriate for age. Impression: No acute process. Electronically signed on Feb 16, 2017 5:10:23 PM AG EQUIPMENT FIELD SERVICE TECHNICIAN by: Femi VIEYRA
[2017-02-17 05:33] LABS: AMPHETAMINE NEGATIVE ng/mL (<1000); BARBITURATES NEGATIVE ng/mL (<300); CANNABINOIDS NEGATIVE ng/mL (< 50); COCAINE NEGATIVE ng/mL (<300); METHAMPHETAMINE NEGATIVE ng/mL (<1000); METHYLENEDIOXYMETHAMPHETAMINE NEGATIVE ng/mL (<500); OPIATES NEGATIVE ng/mL (<300)
[2017-02-17 05:34] LABS: APPEARANCE,URINE CLEAR (CLEAR); COLOR,URINE YELLOW (YELLOW); OCCULT BLOOD,URINE NEGATIVE (NEGATIVE); UROBILINOGEN URINE 0.2 Eu (0.2-1.0)
== END 2017-02-16 18:05 | disposition home or self-care (01) ==
LOC: ED 16:35
DX: R10.13 Epigastric pain (principal)
CPT/HCPCS: 71010; 80053; 80320; 80377; 81002; 82550; 84484; 85025; 85379; 96361; 96374; 99283; J2405; G0480; G0481; J7030

== ENCOUNTER 2017-03-06 16:37 | Emergency (ER) | payer OTHER ==
[2017-03-06] MEDS ORDERED: MAG HYDROX/AL HYDROX/SIMETH 30 ML, Lidocaine 2%Visc 15ml 20 MG, PHENobarb/HYOSCY/ATROPI... PO ONE ×3 (16:45)
[2017-03-06] MEDS ORDERED: Lidocaine 2%Visc 15ml 20 MG/ML UDC ONE (16:47)
[2017-03-06] MEDS ORDERED: MAGNESIUM HYDROXIDE/AL HYDROX 30 ML UDC PO ONE (16:47)
[2017-03-06] MEDS ORDERED: METOCLOPRAMIDE HCL 5 MG TABLET PO ONE (16:55)
[2017-03-06] MEDS ORDERED: LORazepam 2 MG/ML VIAL IM ONE (16:56)
--- NOTE | 2017-03-06 17:01 | ED Physician Documentation ---
Abdominal Pain - HISTORIAN Historian: patient, other (ems) - HPI Stated Complaint: epigastric pain Chief Complaint: Abdominal Pain Additonal Information: increase epigastric pain past several days t hen much worse this am--prev EGD revealed multi craters gerd. pt on both prilosec 40 and zantac 300 daily. a GI COCTAIL ON ADM HAS NOT HELPED MUCH. Onset: days ago (SEVERE EXAB ASOF THIS AM BUTCONDITION IS CHRONIC RECURRENT) Duration: waxing, waning ( bm's reportedly loose normal brown color) Timing: worse Context: denies: out of country travel, bad food, recent trauma Severity: moderate Quality: pain, burning, cramping Associated Symptoms: nausea, vomiting. denies: fever, chills, bloody emesis, loss of appetite Relieved by: nothing (so far) - ROS CONST: no problems. denies: recent illness GI/: denies: constipation, black stools, bloody urine, bloody stools, dark urine CVS/RESP: none EYES/ENT: none MS/SKIN/LYMPH: none NEURO/PSYCH: none - SOCIAL HX Smoking History: greater than 1 pack/day Alcohol Use: none Drug Use: none - FAMILY HX Family History: no significant history - PAST HX Past History: other (COPD GERD PEPTIC ACID DISEASE IHD - CAD [place] X 2 ) Home Medications: Ambulatory Orders Medication Instructions Recorded clonazePAM [Klonopin] 1 mg PO TID 07/06/16 Aspirin [Adult Low Dose Aspirin EC] 81 mg PO QDAY 08/23/16 Clopidogrel Bisulfate [Plavix] 75 mg PO QD 08/23/16 Omeprazole [Prilosec] 40 mg PO BID 08/23/16 Propranolol HCl [Inderal] 20 mg PO TID 08/23/16 Ranitidine HCl [Zantac] 300 mg PO DAILY 11/18/16 Dicyclomine HCl [Bentyl] 10 mg PO BID PRN #20 capsule 02/16/17 Allergies/Adverse Reactions: Allergies Allergy/AdvReac Type Severity Reaction Status Date / Time aripiprazole [From Abilify] Allergy facial Verified 03/06/17 16:46 twitching tramadol Allergy Verified 03/06/17 16:46 hydroxyzine HCl AdvReac Tremors Verified 03/06/17 16:46 [From Vistaril] hydroxyzine pamoate AdvReac Tremors Verified 03/06/17 16:46 [From Vistaril] - VITAL SIGNS Vital Signs: Vital Signs Temp Pulse Resp BP Pulse Ox 97.7 F 81 14 125/81 98 03/06/17 16:41 03/06/17 16:41 03/06/17 16:41 03/06/17 16:41 03/06/17 16:41 - REVIEWED ASSESSMENTS Nursing Assessment Reviewed: Yes Vitals Reviewed: Yes ED Results Lab/Radiology - Radiology Radiology Impressions: abd=sx gas no sig feces air fluid levels - Orders Orders: ED Orders Category Date Time Status ABDOMEN COMPLETE [RAD] Stat Exams 03/06/17 Ordered HYDROcodone /APAP 5/325 [[place] 5/325] Med 03/06/17 17:16 Discontinued 1 each PO NOW ONE LORazepam [Ativan] Med 03/06/17 16:56 Discontinued 1 mg IM NOW ONE LORazepam [Ativan] Med 03/06/17 17:35 Discontinued 1 mg IVP NOW ONE Lidocaine 2%Visc 15ml [Xylocaine] Med 03/06/17 16:47 Discontinued 300 mg .ROUTE .STK-MED ONE Mag Hydrox/Al Hydrox/Simeth [Mylanta] 30 ml Med 03/06/17 16:45 Discontinued Lidocaine 2%Visc 15ml [Xylocaine] 20 mg PHENobarb/HYOSCY/ATROPINE/SCOP [] 10 ml PO NOW Magnesium Hydroxide/Al Hydrox [Maalox] Med 03/06/17 16:47 Discontinued 30 ml PO .STK-MED ONE Metoclopramide HCl [Reglan] Med 03/06/17 16:55 Discontinued 10 mg PO NOW ONE Ondansetron HCl/Pf [Zofran 4 mg/2 ml] Med 03/06/17 17:29 Discontinued 4 mg .ROUTE .STK-MED ONE Ondansetron HCl/Pf [Zofran 4 mg/2 ml] Med 03/06/17 17:35 Discontinued 4 mg IVP NOW ONE Abdominal Pain Physical Exam - Physical Exam General Appearance: moderate distress EENT: eye inspection normal NECK: normal inspection RESPIRATORY: no resp distress, chest non-tender, breath sounds normal. No: wheezes, rales, rhonchi CVS: reg rate & rhythm, heart sounds normal ABDOMEN: soft, tenderness (MOST MARKED EPIGASTRIC AND ULQ BUT LESSER THROUGHOUT MOST OF ABDOMEN--NO GUARDING), abnormal bowel sounds (HYPER) BACK: normal inspection, no CVA tenderness SKIN: warm/dry, normal color. No: cyanosis, diaphoresis EXTREMITIES: non-tender, normal range of motion, no evidence of injury, no edema NEURO: oriented X3, other (NOTE PT STATES HE CAN TAKE NORCO-HAS PREV FOR DENTAL PAIN) Vital Signs: Vital Signs Temp Pulse Resp BP Pulse Ox 97.7 F 81 14 125/81 98 03/06/17 16:41 03/06/17 16:41 03/06/17 16:41 03/06/17 16:41 03/06/17 16:41 Discharge Clincal Impression: acuate exaberation peptic acid disease Referrals: Cyn Roberson PRN [Primary Care Provider] - 2 Days Condition: Good Disposition: 01 HOME, SELF-CARE
[2017-03-06] MEDS ORDERED: HYDROcodone /APAP 5/325 1 EACH TABLET PO ONE (17:16)
[2017-03-06] MEDS ORDERED: ONDANSETRON HCL/PF 4 MG/ 2ML VIAL ONE (17:29)
[2017-03-06] MEDS ORDERED: LORazepam 2 MG/ML VIAL IVP ONE (17:35)
[2017-03-06] MEDS ORDERED: ONDANSETRON HCL/PF 4 MG/ 2ML VIAL IVP ONE (17:35)
--- NOTE | 2017-03-06 18:24 | Diagnostic Imaging Report ---
[facility] [address] [facility].[address] [address] Report Submission Date: Mar 06, 2017 6:18:54 PM PLASTIC FINISHER Patient Study Name: ALISA CRABTREE Date: Mar 06, 2017 5:59:35 PM PLASTIC FINISHER Modality Type: CR Gender: M Description: ABDOMEN : 76 Institution: [facility] Physician: SON BARILLAS Examination: Obstruction series History: Abdominal discomfort Findings: 3 views obtained of the abdomen. No abnormal dilation of the large or small bowel. Air and stool throughout the large bowel. No suspicious calcification projecting over the renal fossa or the lower pelvic region. Osseous structures are appropriate for age. Impression: No obstruction. No suspicious calcifications by plain film sensitivity. Electronically signed on Mar 06, 2017 6:18:54 PM PLASTIC FINISHER by: Femi VIEYRA
[2017-03-06 18:37] VITALS: BP 123/78
== END 2017-03-06 18:28 | disposition home or self-care (01) ==
LOC: ED 16:37
DX: K30 Functional dyspepsia (principal)
CPT/HCPCS: 74020; A9270; J2060; J2405; 96374; 96375; 99283; S1016

== ENCOUNTER 2017-03-14 11:14 | Outpatient (CLI) | payer OTHER | END 2017-03-14 11:15 | LOC: CARD 11:14 | PROVIDERS: ATTEND Internal Medicine Cardiovascular Disease | DX: I25.10 Atherosclerotic heart disease of native coronary artery without angina pectoris (principal); Z86.79 Personal history of other diseases of the circulatory system; Z72.0 Tobacco use | CPT/HCPCS: 99213 ==

== ENCOUNTER 2017-03-27 09:44 | Outpatient (CLI) | payer OTHER ==
[2017-03-27] MEDS ORDERED: ALBUTEROL SULFATE 2.5 MG/3 ML AMPUL.NEB NEB ONE (10:08)
--- NOTE | 2017-03-27 12:45 | Diagnostic Imaging Report ---
JOSUÉ MAYER (VAUGHN) - OP [facility] [address] [facility].[address] [address] Report Submission Date: Mar 27, 2017 11:17:19 AM NURSE EDUCATOR Patient Study Name: ALISA CRABTREE Date: Mar 27, 2017 10:40:41 AM NURSE EDUCATOR Modality Type: CT\SR Gender: M Description: CT CHEST W/ CONTRAST : 76 Institution: [facility] Physician: JOSUÉ MAYER (VAUGHN) - OP Examination: CT chest History: Shortness of breath. Comparison exams: None available Technique: CT chest with contrast protocol Findings: Lung pleura, parenchyma, and pulmonary vascularity are without irregularity. Minimal dependent scarring. No effusion. Anterior mediastinum and tu are without gross mass or pathologic adenopathy. Thoracic aorta without aneurysm or peripheral atherosclerotic disease. Minimal mural thickening. Cardiac silhouette not enlarged. No effusion. Lower neck structures and upper abdominal organs are without gross abnormality. Minimal ossific degenerative spurs. Impression: No acute parenchymal process. Electronically signed on Mar 27, 2017 11:17:19 AM NURSE EDUCATOR by: Femi VIEYRA
== END 2017-03-27 09:45 ==
LOC: RAD 09:44
PROVIDERS: ATTEND Nurse Practitioner Family
DX: R06.02 Shortness of breath (principal); J44.9 Chronic obstructive pulmonary disease, unspecified; Z72.0 Tobacco use
CPT/HCPCS: 71260; 94060; Q9967

== ENCOUNTER 2017-07-13 16:04 | Emergency (ER) | payer OTHER ==
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
[2017-07-13] MEDS ORDERED: clonazePAM 1 MG TABLET PO ONE (17:13)
[2017-07-13 17:20] LABS: BASOPHILS % 0.6 (0.0-1.5); EOSINOPHILS % 4.2 % (0.0-6.8); MEAN CORPUSCULAR HEMOGLOBIN 32.5 pg (28.0-34.0); MEAN CORPUSCULAR VOLUME 94.9 fl (80.0-100.0); MONOCYTES % 4.5 % (0.0-11.0); NEUTROPHILS # 4.8 # k/uL (1.4-7.7)
[2017-07-13 17:35] LABS: eGFR (Non-African) > 60
[2017-07-13] MEDS ORDERED: clonazePAM 0.5 MG TABLET PO ONE (17:47)
[2017-07-13 22:30] VITALS: BP 110/71
[2017-07-14 09:57] LABS: CANNABINOIDS NEGATIVE ng/mL (< 50); METHYLENEDIOXYMETHAMPHETAMINE NEGATIVE ng/mL (<500)
== END 2017-07-13 21:10 | disposition short-term general hospital (02) ==
LOC: ED 16:04
DX: R45.851 Suicidal ideations (principal)
CPT/HCPCS: 80053; 80320; 80377; 85025; 99282; 99283; G0480; G0481; S1016

== ENCOUNTER 2017-07-25 17:21 | Emergency (ER) | payer OTHER ==
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
[2017-07-25 17:40] VITALS: BP 114/68
[2017-07-25] MEDS ORDERED: clonazePAM 0.5 MG TABLET PO ONE (18:03)
== END 2017-07-25 18:15 | disposition home or self-care (01) ==
LOC: ED 17:21
DX: F10.20 Alcohol dependence, uncomplicated (principal)
CPT/HCPCS: 99283

== ENCOUNTER 2017-08-07 11:10 | Emergency (ER) | payer OTHER ==
[2017-08-07 11:54] LABS: BASOPHILS % 0.6 (0.0-1.5); EOSINOPHILS % 4.7 % (0.0-6.8); MEAN CORPUSCULAR HEMOGLOBIN 32.1 pg (28.0-34.0); MEAN CORPUSCULAR VOLUME 96.6 fl (80.0-100.0); MONOCYTES % 6.5 % (0.0-11.0); NEUTROPHILS # 5.8 # k/uL (1.4-7.7)
[2017-08-07 12:12] LABS: eGFR (African) > 60; eGFR (Non-African) > 60
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
[2017-08-07 15:07] LABS: CANNABINOIDS NEGATIVE ng/mL (< 50); METHYLENEDIOXYMETHAMPHETAMINE NEGATIVE ng/mL (<500)
[2017-08-07 15:10] LABS: APPEARANCE,URINE CLEAR (CLEAR); COLOR,URINE AMBER (YELLOW); OCCULT BLOOD,URINE NEGATIVE (NEGATIVE); PH URINE 6.5 (5.0 - 8.0); UROBILINOGEN URINE 0.2 Eu (0.2-1.0)
[2017-08-07 17:21] VITALS: BP 121/79
== END 2017-08-07 17:10 | disposition short-term general hospital (02) ==
LOC: ED 11:10
DX: R45.851 Suicidal ideations (principal)
CPT/HCPCS: 80053; 80320; 80377; 81002; 84484; 85025; 99284; G0480; G0481

== ENCOUNTER 2017-09-02 17:42 | Emergency (ER) | payer OTHER ==
[2017-09-02 18:30] LABS: BASOPHILS % 0.5 (0.0-1.5); EOSINOPHILS % 2.4 % (0.0-6.8); MEAN CORPUSCULAR VOLUME 95.3 fl (80.0-100.0); MONOCYTES % 3.9 % (0.0-11.0); NEUTROPHILS # 6.7 # k/uL (1.4-7.7)
[2017-09-02 18:43] LABS: eGFR (African) > 60; eGFR (Non-African) > 60
--- NOTE | 2017-09-02 19:11 | ED Physician Documentation ---
Psychological Disorders - HISTORIAN Historian: patient, other - HPI Stated Complaint: suicidal ideation Chief Complaint: Psychological Disorder Additional Information: EMS called to patient's residence for SI. Says he wants to blow his brains out. Refused EMS transport to [place], so police brought him here. He also complains of chest pain and has been drinking. HX of 4 IA's in the past. Multiple episodes of SI in the past with psych hospitalizations. In ER, curses, is evasive with answers, refuses CXR, says alcohol has worn off and he wants to go home. - ROS CONST: none - PAST HX Psychiatric problems: psychiatric problems (see above) Allergies/Adverse Reactions: Allergies Allergy/AdvReac Type Severity Reaction Status Date / Time aripiprazole [From Abilify] Allergy facial Verified 09/02/17 18:16 twitching escitalopram oxalate Allergy Verified 09/02/17 18:16 [From Lexapro] tramadol Allergy Verified 09/02/17 18:16 hydroxyzine HCl AdvReac Tremors Verified 09/02/17 18:16 [From Vistaril] hydroxyzine pamoate AdvReac Tremors Verified 09/02/17 18:16 [From Vistaril] Home Medications: Ambulatory Orders Medication Instructions Recorded clonazePAM [Klonopin] 1 mg PO QID 07/06/16 Aspirin [Adult Low Dose Aspirin EC] 81 mg PO QDAY 08/23/16 Clopidogrel Bisulfate [Plavix] 75 mg PO QD 08/23/16 Omeprazole [Prilosec] 40 mg PO BID 08/23/16 Propranolol HCl [Inderal] 20 mg PO TID 08/23/16 Ranitidine HCl [Zantac] 300 mg PO D 11/18/16 - Social HX Smoking History: cigarettes - Family HX Family HX: denies: other - VITAL SIGNS Vital Signs: Vital Signs Temp Pulse Resp BP Pulse Ox 84 121/79 09/02/17 18:51 08/07/17 17:20 - REVIEWED ASSESSMENTS Nursing Assessment Reviewed: Yes Vitals Reviewed: Yes Progress - Progress Progress: 1914, since we will not release pt to police officers. they are removing cuffs and leaving. he is no longer a prisoner. 1924, says he is no longer suicidal, that ETOH has worn off, and family is coming to get him. Explaine he could not leave nor could family stay with him. 194, pt ran out the back door of ER. [place] PD notified. ED Results Lab/Radiology - Lab Results Lab Results: Lab Results 09/02/17 09/02/17 09/02/17 18:16 18:16 18:16 WBC RBC Hgb Hct MCV MCH MCHC RDW Plt Count Neut % (Auto) Lymph % (Auto) Gulf % (Auto) Eos % (Auto) Baso % (Auto) Neut # (Auto) Lymph # (Auto) [place] # (Auto) Eos # (Auto) Baso # (Auto) Reactive Lymphs % Reactive Lymphs # Sodium 145 mmol/L mmol/L (136-145) Potassium 3.8 mmol/L mmol/L (3.5-5.1) Chloride 106 mmol/L mmol/L (98-107) Carbon Dioxide 24 mmol/L mmol/L (22-30) BUN 4 mg/dL L mg/dL (9-20) Creatinine 0.80 mg/dL mg/dL (0.66-1.25) Estimated Creat Clear 159 Est GFR ( Amer) > 60 (60 - ) Est GFR (Non-Af Amer) > 60 (60 - ) Glucose 106 mg/dL mg/dL (74-106) Calcium 9.0 mg/dL mg/dL (8.4-10.2) Total Bilirubin < 0.1 mg/dL L mg/dL (0.2-1.3) AST 54 U/L H U/L (15-46) ALT 48 U/L U/L (13-69) Alkaline Phosphatase 90 U/L U/L (38-126) Troponin I < 0.03 ng/mL L ng/mL (0.03-0.06) Total Protein 8.3 g/dL H g/dL (6.3-8.2) Albumin 4.9 g/dL g/dL (3.5-5.0) Acetaminophen < 4.0 ug/mL L ug/mL (10-30) 09/02/17 18:16 WBC 11.30 K/ul K/ul (4.00-12.00) RBC 4.96 M/ul M/ul (3.90-5.20) Hgb 15.9 g/dL g/dL (12.0-18.0) Hct 47.3 % % (37.0-53.0) MCV 95.3 fl fl (80.0-100.0) MCH 32.0 pg pg (28.0-34.0) MCHC 33.6 g/dL g/dL (30.0-36.0) RDW 13.9 % % (11.3-14.3) Plt Count 201 K/mm3 K/mm3 (130-400) Neut % (Auto) 59.8 % % (39.0-79.0) Lymph % (Auto) 31.3 % % (16.0-50.0) Gulf % (Auto) 3.9 % % (0.0-11.0) Eos % (Auto) 2.4 % % (0.0-6.8) Baso % (Auto) 0.5 (0.0-1.5) Neut # (Auto) 6.7 # k/uL # k/uL (1.4-7.7) Lymph # (Auto) 3.5 # k/uL # k/uL (0.6-4.0) Gulf # (Auto) 0.4 # k/uL # k/uL (0.0-0.9) Eos # (Auto) 0.3 # k/uL # k/uL (0.0-0.6) Baso # (Auto) 0.1 # k/uL # k/uL (0.0-0.5) Reactive Lymphs % 2.2 % % (0.0-5.0) Reactive Lymphs # 0.2 # k/uL # k/uL (0.0-0.8) Sodium Potassium Chloride Carbon Dioxide BUN Creatinine Estimated Creat Clear Est GFR ( Amer) Est GFR (Non-Af Amer) Glucose Calcium Total Bilirubin AST ALT Alkaline Phosphatase Troponin I Total Protein Albumin Acetaminophen - Orders Orders: ED Orders Category Date Time Status Continuous EKG monitoring Q1H Care 09/02/17 17:51 Active CHEST 1VIEW [RAD] Stat Exams 09/02/17 Ordered ACETAMINOPHEN LEVEL Stat Lab 09/02/17 18:16 Completed CBC/PLATELET/DIFF Routine Lab 09/02/17 18:16 Completed CMP Routine Lab 09/02/17 18:16 Completed ETHANOL REF Stat Lab 09/02/17 18:16 Received SALICYLATE LEVEL Stat Lab 09/02/17 18:16 Received T3 FREE Stat Lab 09/02/17 18:16 Received THYROID STIMULATING HORMONE Stat Lab 09/02/17 18:16 Received THYROXINE T4 FREE Stat Lab 09/02/17 18:16 Received TROPONIN I (cTnI) Stat Lab 09/02/17 18:16 Completed TROPONIN I (cTnI) Stat Lab 09/02/17 20:20 Ordered URINALYSIS Routine Lab 09/02/17 Ordered Urine drug screen [DRUG SCREEN URINE MEDICAL ONLY] Lab 09/02/17 Ordered Routine EKG WITH COMPARISON Stat Ther 09/02/17 Ordered Psych Physical Exam - Physical Exam General Appearance: uncooperative for exam, other (talkative, cursing, critical , poor enunciation) ENT: nml ENT inspection, pharynx nml Eyes: PERRL, EOM's intact, nystagmus (rapid) Mental Status: hostile, non-communicative, suicidal ideation Suicide Attempts: still contemplating Orientation: nml x3, uncooperative Cranial Nerves: CN's intact as tested Sensory, Motor: nml motor response, nml sensory response Neck/Back: normal inspection, supple Respiratory: no resp distress, chest non-tender, breath sounds normal, rales CVS: reg rate & rhythm, heart sounds normal Abdomen: non-tender, nml bowel sounds Skin: warm/dry, normal color Extremities: no evidence of injury, no edema Discharge Clincal Impression: Suicidal ideation Referrals: Cyn Roberson PRN [Primary Care Provider] - 2 Days Condition: Poor Disposition: 07 AGAINST MEDICAL ADVICE Decision to Admit: NO Decision Time: 19:48
[2017-09-02 21:09] LABS: CANNABINOIDS NEGATIVE ng/mL (< 50); METHYLENEDIOXYMETHAMPHETAMINE NEGATIVE ng/mL (<500)
[2017-09-02 21:26] LABS: APPEARANCE,URINE CLEAR (CLEAR); COLOR,URINE YELLOW (YELLOW); OCCULT BLOOD,URINE NEGATIVE (NEGATIVE); PH URINE 5.5 (5.0 - 8.0); UROBILINOGEN URINE 0.2 Eu (0.2-1.0)
== END 2017-09-02 19:46 | disposition left against medical advice (07) ==
LOC: ED 17:42
DX: R45.851 Suicidal ideations (principal)
CPT/HCPCS: 80053; 80377; 81002; 84439; 84443; 84481; 84484; 85025; 99285; G0481; S1016

== ENCOUNTER 2017-09-21 17:00 | Emergency (ER) | payer OTHER ==
[2017-09-21 17:54] LABS: BASOPHILS % 0.3 (0.0-1.5); EOSINOPHILS % 1.4 % (0.0-6.8); MEAN CORPUSCULAR HEMOGLOBIN 31.6 pg (28.0-34.0); MEAN CORPUSCULAR VOLUME 95.9 fl (80.0-100.0); MONOCYTES % 5.3 % (0.0-11.0); NEUTROPHILS # 5.8 # k/uL (1.4-7.7)
[2017-09-21 18:08] LABS: eGFR (Non-African) > 60
--- NOTE | 2017-09-21 19:42 | ED Physician Documentation ---
Psychological Disorders - HISTORIAN Historian: patient - HPI Stated Complaint: Situation at home causing him to think about harming himself Chief Complaint: Psychological Disorder Onset: hours Intent: wants to escape Severity: moderate Situational Problems: Yes Related To: other (sister; cinthia nino) Further Comments: yes (37 year old male patient presents with suicidal ideation. States "I have friends with guns. I will shoot myself". Patient states his sister spent all the rent money gambling; reports cinthia nino came to collect rent; argument and fight between nehal and sister made him anxious.) - Associated Symptoms Symptoms: depressed Suicidal: suicidal thoughts Ingestion: wanted to "escape" - ROS CONST: no problems (situational) NEURO/PSYCH: none EYES/ENT: none CVS/RESP: none GI/: denies: nausea, vomiting, abdominal pain, problems urinating, other MS/SKIN/LYMPH: denies: joint pain, leg swelling, rash, swollen glands, ankle swelling, other - PAST HX Psychiatric problems: bipolar disorder Lung, Cardiac, DM: AMI, other (GERD) Allergies/Adverse Reactions: Allergies Allergy/AdvReac Type Severity Reaction Status Date / Time aripiprazole [From Abilify] Allergy facial Verified 09/21/17 17:58 twitching escitalopram oxalate Allergy Verified 09/21/17 17:58 [From Lexapro] tramadol Allergy Verified 09/21/17 17:58 hydroxyzine HCl AdvReac Tremors Verified 09/21/17 17:58 [From Vistaril] hydroxyzine pamoate AdvReac Tremors Verified 09/21/17 17:58 [From Vistaril] Home Medications: Ambulatory Orders Medication Instructions Recorded clonazePAM [Klonopin] 1 mg PO QID 07/06/16 Aspirin [Adult Low Dose Aspirin EC] 81 mg PO QDAY 08/23/16 Clopidogrel Bisulfate [Plavix] 75 mg PO QD 08/23/16 Omeprazole [Prilosec] 40 mg PO BID 08/23/16 Propranolol HCl [Inderal] 20 mg PO TID 08/23/16 Ranitidine HCl [Zantac] 300 mg PO D 11/18/16 Lurasidone HCl [Latuda] 40 mg PO D 09/21/17 - Social HX Smoking History: cigarettes - Family HX Family HX: mental illness - VITAL SIGNS Vital Signs: Vital Signs Temp Pulse Resp BP Pulse Ox 98.5 F 66 16 159/96 97 09/21/17 17:00 09/21/17 17:00 09/21/17 17:00 09/21/17 17:00 09/21/17 17:00 - REVIEWED ASSESSMENTS Nursing Assessment Reviewed: Yes Vitals Reviewed: Yes Progress - Progress Progress: Patient is well known to this provider; has multiple inpatient admissions. Patient does not want admission at [facility]. Multiple calls for placement; 2200 Patient accepted by [facility] cognitive development. 2210 Patient discharged with EMS. 2 previous admission to [facility] per their staff when nursing report called. ED Results Lab/Radiology - Lab Results Lab Results: Lab Results 09/21/17 09/21/17 17:50 17:50 WBC 8.20 K/ul K/ul (4.00-12.00) RBC 4.81 M/ul M/ul (3.90-5.20) Hgb 15.2 g/dL g/dL (12.0-18.0) Hct 46.2 % % (37.0-53.0) MCV 95.9 fl fl (80.0-100.0) MCH 31.6 pg pg (28.0-34.0) MCHC 33.0 g/dL g/dL (30.0-36.0) RDW 13.9 % % (11.3-14.3) Plt Count 141 K/mm3 K/mm3 (130-400) Neut % (Auto) 70.3 % % (39.0-79.0) Lymph % (Auto) 20.9 % % (16.0-50.0) [place] % (Auto) 5.3 % % (0.0-11.0) Eos % (Auto) 1.4 % % (0.0-6.8) Baso % (Auto) 0.3 (0.0-1.5) Neut # (Auto) 5.8 # k/uL # k/uL (1.4-7.7) Lymph # (Auto) 1.7 # k/uL # k/uL (0.6-4.0) [place] # (Auto) 0.4 # k/uL # k/uL (0.0-0.9) Eos # (Auto) 0.1 # k/uL # k/uL (0.0-0.6) Baso # (Auto) 0.0 # k/uL # k/uL (0.0-0.5) Reactive Lymphs % 1.7 % % (0.0-5.0) Reactive Lymphs # 0.1 # k/uL # k/uL (0.0-0.8) Sodium 140 mmol/L mmol/L (136-145) Potassium 3.5 mmol/L mmol/L (3.5-5.1) Chloride 107 mmol/L mmol/L (98-107) Carbon Dioxide 22 mmol/L mmol/L (22-30) BUN 16 mg/dL mg/dL (9-20) Creatinine 0.70 mg/dL mg/dL (0.66-1.25) Estimated Creat Clear 145 Est GFR ( Amer) > 60 (60 - ) Est GFR (Non-Af Amer) > 60 (60 - ) Glucose 123 mg/dL H mg/dL (74-106) Calcium 9.3 mg/dL mg/dL (8.4-10.2) Total Bilirubin 0.3 mg/dL mg/dL (0.2-1.3) AST 29 U/L U/L (15-46) ALT 64 U/L U/L (13-69) Alkaline Phosphatase 65 U/L U/L (38-126) Total Protein 7.4 g/dL g/dL (6.3-8.2) Albumin 4.4 g/dL g/dL (3.5-5.0) Acetaminophen < 10.0 ug/mL L ug/mL (10-30) Ethyl Alcohol < 10.0 mg/dL mg/dL (0.0-10.0) - Orders Orders: ED Orders Category Date Time Status ACETAMINOPHEN LEVEL Stat Lab 09/21/17 17:50 Completed ALCOHOL MEDICAL USE ONLY Stat Lab 09/21/17 17:50 Completed CBC/PLATELET/DIFF Stat Lab 09/21/17 17:50 Completed CMP Stat Lab 09/21/17 17:50 Completed DRUG SCREEN URINE MEDICAL ONLY Stat Lab 09/21/17 Ordered UA W/MICRO IF INDICATED Stat Lab 09/21/17 17:09 Ordered LORazepam [Ativan] Med 09/21/17 22:25 Discontinued 1 mg PO NOW ONE Psych Physical Exam - Physical Exam General Appearance: no acute distress, alert ENT: nml ENT inspection, pharynx nml, nml gag reflex, head atraumatic Mental Status: mood/affect nml Suicide Attempts: still contemplating Orientation: nml x3 Cranial Nerves: CN's intact as tested Sensory, Motor: nml motor response, nml sensory response, nml reflexes, nml gait Neck/Back: normal inspection, thyroid normal Respiratory: no resp distress, chest non-tender, breath sounds normal CVS: reg rate & rhythm, heart sounds normal, equal pulses, no murmur, no gallop , PMI nml, no JVD, no friction rub, 24 Abdomen: non-tender Skin: normal color, warm/dry, NR, INT, PAL, DR Extremities: non-tender, normal range of motion, no evidence of injury, no edema , J, [employer]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
[2017-09-21] MEDS: LORazepam 1 MG TABLET PO ONE (22:45)
[2017-09-21 23:25] VITALS: BP 123/75
[2017-09-22 08:41] LABS: APPEARANCE,URINE CLEAR (CLEAR); COLOR,URINE AMBER (YELLOW); OCCULT BLOOD,URINE NEGATIVE (NEGATIVE)
[2017-09-22 09:00] LABS: CANNABINOIDS NEGATIVE ng/mL (< 50)
[2017-09-22 09:01] LABS: METHYLENEDIOXYMETHAMPHETAMINE NEGATIVE ng/mL (<500)
== END 2017-09-21 23:15 | disposition short-term general hospital (02) ==
LOC: ED 17:00
DX: R45.851 Suicidal ideations (principal)
CPT/HCPCS: 80053; 80320; 80377; 81002; 85025; 99285; G0480; G0481

== ENCOUNTER 2017-10-07 01:23 | Emergency (ER) | payer OTHER ==
--- NOTE | 2017-10-07 01:27 | ED Physician Documentation ---
General Adult - HISTORIAN Historian: patient - HPI Stated Complaint: chest pain Chief Complaint: Chest Pain Onset: other (SENECA - he is saying "I dont know" ) Timing: still present Severity: moderate (7 on 1/10 scale ) Further Comments: yes (He is in police custody. He states he has had a heart attack in the past and the chest pain feels like prior pain. He will not clearly state when the pain started. He has taken drugs and a few beers tonight per his report. "A few beers and several lines of this and that" . He has no other complaints. He has several old areas on his chest from EKG pads and when questioned he states "I overdosed on Nitro a few weeks ago and was in ICU for 3 days" > He is belligerent with staff and the law enforcement with him. Stating "Fuck you . You dumb bitch" to myself. He did fall on the floor of the exam room while cursing the food safety officer and nurse.) Last known Well Code/Unknown Code: Unknown - ROS CONST: no problems EYES/ENT: none CVS/RESP: chest pain. denies: shortness of breath, cough GI/: denies: vomiting, nausea - PAST HX Past History: other (SD and drug use ) Other History: none Surgeries/Procedures: none Immunizations: other (SENECA ) Allergies/Adverse Reactions: Allergies Allergy/AdvReac Type Severity Reaction Status Date / Time aripiprazole [From Abilify] Allergy facial Verified 09/21/17 17:58 twitching escitalopram oxalate Allergy Verified 09/21/17 17:58 [From Lexapro] tramadol Allergy Verified 09/21/17 17:58 hydroxyzine HCl AdvReac Tremors Verified 09/21/17 17:58 [From Vistaril] hydroxyzine pamoate AdvReac Tremors Verified 09/21/17 17:58 [From Vistaril] Home Medications: Ambulatory Orders Medication Instructions Recorded clonazePAM [Klonopin] 1 mg PO QID 07/06/16 Aspirin [Adult Low Dose Aspirin EC] 81 mg PO QDAY 08/23/16 Clopidogrel Bisulfate [Plavix] 75 mg PO QD 08/23/16 Omeprazole [Prilosec] 40 mg PO BID 08/23/16 Propranolol HCl [Inderal] 20 mg PO TID 08/23/16 Ranitidine HCl [Zantac] 300 mg PO D 11/18/16 Lurasidone HCl [Latuda] 40 mg PO D 09/21/17 - SOCIAL HX Smoking History: cigarettes Alcohol Use: heavy Drug Use: other ("lines of things" ) - FAMILY HX Family History: No - VITAL SIGNS Vital Signs: Vital Signs Temp Pulse Resp BP Pulse Ox 123/75 09/21/17 23:15 - REVIEWED ASSESSMENTS Nursing Assessment Reviewed: Yes Vitals Reviewed: Yes Progress - Progress Progress: 0206: He is requesting to leave and go to care home with no further or complete treatment. Full discussion on possible risks and needs for treatment . He would not listen just stating "I want to go to care home" DG General Adult Physical Exam - PHYSICAL EXAM GENERAL APPEARANCE: no distress EENT: eye inspection normal RESPIRATORY: no resp distress SKIN: warm/dry, normal color EXTREMITIES: no edema NEURO: other (He is alert and oriented on place but his speech is inappropriate and does not follow discussion or request. Full exam was not allowed by patient. He states "I just want to get the fuck out of here so I can go to care home and beat this fucker (directed to food safety officer) up and of a heart attack" . ) Discharge Clincal Impression: Chest pain Qualifiers: Chest pain type: other chest pain Qualified Code(s): R07.89 - Other chest pain Referrals: Cyn Roberson PRN [Primary Care Provider] - 2 Days Additional Instructions: 0206: Refusing treatment and further evaluation - DG Disposition: 07 AGAINST MEDICAL ADVICE Decision to Admit: NO Date of Decison to Admit: 10/07/17 Decision Time: 02:07
[2017-10-07] MEDS ORDERED: ASPIRIN 81 MG CHEW TAB PO ONE (01:30)
[2017-10-07 02:02] LABS: BASOPHILS % 0.7 (0.0-1.5); MEAN CORPUSCULAR HEMOGLOBIN 33.3 pg (28.0-34.0); MEAN CORPUSCULAR VOLUME 100.8 fl (80.0-100.0); MONOCYTES % 4.4 % (0.0-11.0); NEUTROPHILS # 3.9 # k/uL (1.4-7.7)
[2017-10-07 02:08] LABS: eGFR (African) > 60; eGFR (Non-African) > 60
[2017-10-07 03:26] VITALS: BP 98/64
== END 2017-10-07 02:15 | disposition left against medical advice (07) ==
LOC: ED 01:23
DX: R07.89 Other chest pain (principal); Z53.9 Procedure and treatment not carried out, unspecified reason
CPT/HCPCS: 80053; 80320; 82550; 84484; 85025; 99284; G0480

== ENCOUNTER 2017-10-08 08:33 | Emergency (ER) | payer OTHER ==
[2017-10-08] MEDS ORDERED: ASPIRIN 81 MG CHEW TAB PO ONE (08:48)
--- NOTE | 2017-10-08 08:52 | ED Physician Documentation ---
General Adult - HISTORIAN Historian: patient - HPI Stated Complaint: chest pain Chief Complaint: General Adult Onset: hours Timing: still present Severity: moderate Further Comments: yes (Pt is a 37 yo male prisoner with c/o chest pain. Pt has hx OR x 2 with stent placement. Pt was seen here yesterday, in custody shortly after his arrest, and was abusive to staff and to law enforcement. Pt stated then that he had "done a few lines" of drugs. Pt then signed out AMA and was taken to halfway. Pt has hx anxiety and has had a number of visits here for chest pain following his OR's, with neg work-ups, and with tx for anxiety. Pt has not had Klonopin for 2 days and is concerned that he may have a withdrawal seizure in custody. Pt states he has a burning in his epigastrium/lower sternum. He has hx GERD, but has not taken his antacid med today. Pt states that he was hospitalized last week in [facility] ICU after a nitroglycerin overdose. Pt states that he was given nitroglycerin x 3 lighter captain today, but with no change in pain.) - ROS CONST: no problems EYES/ENT: none CVS/RESP: chest pain, shortness of breath GI/: other (burning in epigastrium) MS/SKIN/LYMPH: none NEURO/PSYCH: anxiety - PAST HX Past History: AMI (x 2), other (bipolar d/o; drug & alcohol abuse; heavy smoker. ) Surgeries/Procedures: cardiac stent Allergies/Adverse Reactions: Allergies Allergy/AdvReac Type Severity Reaction Status Date / Time aripiprazole [From Abilify] Allergy facial Verified 10/08/17 09:05 twitching escitalopram oxalate Allergy Verified 10/08/17 09:05 [From Lexapro] tramadol Allergy Verified 10/08/17 09:05 hydroxyzine HCl AdvReac Tremors Verified 10/08/17 09:05 [From Vistaril] hydroxyzine pamoate AdvReac Tremors Verified 10/08/17 09:05 [From Vistaril] Home Medications: Ambulatory Orders Medication Instructions Recorded clonazePAM [Klonopin] 1 mg PO QID 07/06/16 Aspirin [Adult Low Dose Aspirin EC] 81 mg PO QDAY 08/23/16 Clopidogrel Bisulfate [Plavix] 75 mg PO QD 08/23/16 Omeprazole [Prilosec] 40 mg PO BID 08/23/16 Propranolol HCl [Inderal] 20 mg PO TID 08/23/16 Ranitidine HCl [Zantac] 300 mg PO D 11/18/16 Lurasidone HCl [Latuda] 40 mg PO D 09/21/17 - SOCIAL HX Smoking History: cigarettes Alcohol Use: heavy Drug Use: cocaine, methamphetamines - FAMILY HX Family History: No - VITAL SIGNS Vital Signs: Vital Signs Temp Pulse Resp BP Pulse Ox 98/64 10/07/17 01:31 - REVIEWED ASSESSMENTS Nursing Assessment Reviewed: Yes Vitals Reviewed: Yes Progress - Progress Progress: ASA 325 mg po x 1 NS 1 L IVF Famotidine 20 mg IV Ativan 1 mg IV Toradol 30 mg IV Pt had an apparently erroneous D-dimer level >5000, which was followed by a CT scan that appeared normal. The D-dimer was then repeated with a repeat value of 717. CXR: no active disease CT with contrast: No PE. No focal consolidation or pleural effusion. No pneumothorax. Mild distal esophageal wall thickening. EKG #1 8:32 am sinus bradycardia, HR=45; LAFB EKG #2 9:38 am for c/o cp sinus bradycardia, HR=43; with apparent change to R axis ? electrode placement EKG #3 11:29 am sinus bradycardia, HR=45; similar to EKG #1, and (except for HR=61) is not changed vs EKG of 02/16/17. Pt has hx bradycardia/low normal HR and is on propranolol 20 mg po tid. Change propranolol to bid. Rx Ativan 0.5 mg. 1 po tid x 2 days; then 1 po bid x 2 days; then 1 po qd x 2 days; then stop. (For risk of seizure.) - EKG/XRAY/CT EKG: rhythm XRAY: chest ( No active pulmonary disease.) ED Results Lab/Radiology - Orders Orders: ED Orders Category Date Time Status Continuous EKG monitoring Q30M Care 10/08/17 08:49 Ordered Continuous Pulse Oximetry Q30M Care 10/08/17 08:[address] IV Lock 1T Care 10/08/17 08:49 Ordered CBC/PLATELET/DIFF Routine Lab 10/08/17 08:49 Ordered CKMB Stat Lab 10/08/17 Ordered CMP Routine Lab 10/08/17 08:49 Ordered CREATINE KINASE Routine Lab 10/08/17 08:49 Ordered D DIMER Stat Lab 10/08/17 Ordered NT-proBNP Stat Lab 10/08/17 Ordered PT-INR Routine Lab 10/08/17 Ordered TROPONIN I (cTnI) Stat Lab 10/08/17 08:49 Ordered Aspirin Med 10/08/17 08:48 Once 324 mg PO NOW ONE Oxygen Daily Oxygen 10/08/17 09:00 Ordered EKG WITH COMPARISON Stat Ther 10/08/17 08:49 Ordered General Adult Physical Exam - PHYSICAL EXAM GENERAL APPEARANCE: moderate distress (anxious) EENT: eye inspection normal, pharynx normal NECK: normal inspection, supple RESPIRATORY: no resp distress, chest non-tender, breath sounds normal CVS: heart sounds normal, bradycardia ABDOMEN: soft, no organomegaly, normal bowel sounds BACK: normal inspection, no CVA tenderness SKIN: warm/dry, normal color EXTREMITIES: non-tender, normal range of motion, no edema NEURO: oriented X3, motor nml, sensation nml, other Discharge Clincal Impression: chest pain/anxiety/possible GERD, benzodiazepine cessation, possible seizure risk, bradycardia on tid B-callum Referrals: Cyn Roberson PRN [Primary Care Provider] - Condition: Stable Disposition: 01 HOME, SELF-CARE Decision to Admit: NO Decision Time: 14:00
[2017-10-08] MEDS ORDERED: FAMOTIDINE/PF 20 MG/2 ML VIAL IVP ONE (09:05)
[2017-10-08 09:08] LABS: BASOPHILS % 0.5 (0.0-1.5); EOSINOPHILS % 3.1 % (0.0-6.8); MEAN CORPUSCULAR HEMOGLOBIN 32.8 pg (28.0-34.0); MEAN CORPUSCULAR VOLUME 98.7 fl (80.0-100.0); MONOCYTES % 4.6 % (0.0-11.0); NEUTROPHILS # 5.1 # k/uL (1.4-7.7)
[2017-10-08] MEDS ORDERED: 0.9 % SODIUM CHLORIDE 1,000 ML IV ONE ×2 (09:16→09:18)
[2017-10-08] MEDS ORDERED: LORazepam 2 MG/ML VIAL IVP ONE (09:16)
[2017-10-08] MEDS ORDERED: LORazepam 1 MG TABLET PO ONE ×2 (09:17→09:20)
[2017-10-08 09:38] LABS: eGFR (African) > 60; eGFR (Non-African) > 60
[2017-10-08] MEDS ORDERED: KETOROLAC TROMETHAMINE 30 MG/1ML VIAL ONE (09:59)
[2017-10-08] MEDS ORDERED: KETOROLAC TROMETHAMINE 30 MG/1ML VIAL IVP ONE (10:00)
--- NOTE | 2017-10-08 12:25 | Diagnostic Imaging Report ---
MATY NIEVES [facility] [address] [facility] [address] [place] [address]. [id number] Report Submission Date: Oct 08, 2017 9:47:02 AM CDT Patient Study Name: ALISA CRABTREE Date: Oct 08, 2017 9:13:00 AM CDT Modality Type: DX Gender: M Description: CHEST : 76 Institution: [facility] Physician: MATY NIEVES Chest, AP portable History: Chest pain Findings: No infiltrate, effusion or pneumothorax is present. Heart size, mediastinum and pulmonary vascularity are normal. Impression: No active pulmonary disease. Electronically signed on Oct 08, 2017 9:47:02 AM CDT by: Sami VIEYRA
--- NOTE | 2017-10-08 12:26 | Diagnostic Imaging Report ---
MATY NIEVES [facility] [address] [facility] [address] [place] [address]. [id number] Report Submission Date: Oct 08, 2017 11:05:05 AM CDT Patient Study Name: ALISA CRABTREE Date: Oct 08, 2017 10:29:10 AM CDT Modality Type: CT\SR Gender: M Description: CT PE CHEST : 76 Institution: [facility] Physician: MATY NIEVES CT chest PE protocol History: ELEVATED D DIMER >5000; CHEST PAIN; SOA Comparison: March 27, 2017 No PE. No evidence of aortic aneurysm or dissection. No pericardial effusion. Coronary calcification present. Multiple prominent mediastinal lymph nodes are seen. Limited views of the upper abdomen demonstrate no biliary dilatation. Spleen, partially imaged pancreas and liver are unremarkable. Contrast versus nonobstructing right renal calculus No acute osseous pathology Mild motion artifact. No focal consolidation, pleural effusion or pneumothorax. Impression: 1. No PE. No focal consolidation or pleural effusion. No pneumothorax. Mild distal esophageal wall thickening. Electronically signed on Oct 08, 2017 11:05:05 AM CDT by: Radha VIEYRA
[2017-10-08 14:03] VITALS: BP 110/68
== END 2017-10-08 13:20 | disposition home or self-care (01) ==
LOC: ED 08:33
DX: R07.9 Chest pain, unspecified (principal); F41.9 Anxiety disorder, unspecified
CPT/HCPCS: 71045; 71275; 80053; 82550; 82553; 83880; 84484; 85025; 85379; 85610; J1885; J7030; 96365; 96375; 99284; S0028; S1016